=== PATIENT | female | born 1960 | race Caucasian/White ===

== ENCOUNTER 2017-07-03 12:22 | Emergency (ER) | payer SELFPAY ==
[2017-07-03 12:39] VITALS: BMI 29.9
[2017-07-03 12:43] VITALS: BP 142/78
--- NOTE | 2017-07-03 13:03 | DR.WEAKNES ---
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 This morning I felt weird; face felt weird, sting on left side and left arm pain. Patient reports that yesterday got hot at work. Denies any history of cardiopulmonary disease. Chief Complaint:: PT SENT OVER PER [facility] WITH C/O FACIAL DROOPING AND LEFT ARM NOT FEELING RIGHT.. AND PT WORKS IN THE KITCHEN AND THERE HAS NOT BEEN ANY AIR ..BR Self Treatment fo Chief Complaint: PT C/O STEINER AND STUDDERING YESTERDAY .. - Source History Provided: Patient - Mode of Arrival Mode of Arrival: Ambulatory - Timing Onset of Chief Complaint: 07/03/17 Symptom Onset: Known Onset of Symptoms Start Date: 07/03/17 Onset of Symptoms Start Time: 08:00 - Duration Duration: Unknown Duration: Hours - Context Onset: With heavy exertion Symptoms: Weakness. denies: Slurred Speech, Diplopia History of: None. denies: CVA, TIA, Atrial Fibrillation Stroke Symptoms: None - Location Weakness Location: Normal, Left - Associated Signs and Symptoms Associated Signs and Symptoms: None. denies: Altered Mental Status, Chest Pain , Nausea PMH - PMH Past Medical History: Yes Past Medical History: Anxiety, COPD, Depression, Hypertension Past Surgical History: Yes Surgical History: Cholecystectomy Past Surgical History Comment: TUBAL - Family History History of Family Medical Conditions: Yes Family Medical History: Diabetes Mellitus, Cancer, [place], Hypertension - Social History Does patient currently use any type of tobacco product: No Have you used tobacco products in the last 12 months: No Type of Tobacco Use: None Does any household member use tobacco: No Alcohol Use: None Do you use any recreational Drugs:: No Lives With: Alone Lives Where: Home - infectious screening In the last 2 months have you had wt loss of >10#?: NO Have you had fever, night sweats or hemotysis?: No Have you traveled outside the country in the last 6 months?: No Isolation: Standard ROS - Review of Systems Constitutional: No Symptoms Reported Eyes: No Symptoms Reported ENTM: No Symptoms Reported Respiratoy: No Symptoms Reported Cardiovascular: No Symptoms Reported Gastrointestinal/Abdominal: No Symptoms Reported Genitourinary: No Symptoms Reported Neurological: No Symptoms Reported Musculoskeletal: No Symptoms Reported Integumentary: No Symptoms Reported Hematologic/Lymphatic: No Symptoms Reported Endocrine: No Symptoms Reported Psychiatric: No Symptoms Reported All Other Systems: Reviewed and Negative PE - Vital Signs Vitals: Temperature 98.0 F Pulse Rate 67 Respiratory Rate 20 Blood Pressure [Right Arm] 98/55 Blood Pressure [Left Arm] 133/83 Blood Pressure 142/78 O2 Sat by Pulse Oximetry 99 - General Limitations: No Limitations General Appearance: Alert, In No Apparent Distress - Head Head Exam: Normal Inspection, Atraumatic Head Exam Physical: Laceration - Eyes Eye exam: Normal Appearance, PERRL, EOMI Eyelids: Normal Inspection: Bilateral Pupils: Regular, Round: Bilateral Sclera/Conjunctival: Normal Inspection: Bilateral Anterior Chamber: Normal Inspection: Bilateral - ENT ENT Exam: Normal Exam, Normal Oropharynx Mouth Exam: Normal Inspection Throat Exam: Normal Inspection - Neck Neck Exam: Normal Inspection, Full ROM - Chest Chest Inspection: Normal Inspection - Respiratory Respiratory Exam: Normal Lung Sounds Bilat Respiratory Exam: Bilateral Clear to Auscultation - Cardiovascular Cardiovascular Exam: Regular Rate, Normal Rhythm - Abdominal Exam Abdominal Exam: Normal Inspection, Normal Bowel Sounds Abdominal Tenderness: negative: RUQ, RLQ, LUQ, LLQ, Epigastrium, Suprapubic, Diffuse, Mild, Moderate, Severe, Other - Extremities Extremities Exam: Normal Inspection, Full ROM - Back Back Exam: Normal Inspection, Full ROM - Neurologic Neurological Exam: Alert, Oriented X3, CN II-XII Intact Speech: Fluid Speech Cranial Nerve Exam: EOM Function (II, III, IV, ): Normal, Facial Sensation (V) : Normal, Facial Palsy (VII): Normal, Gag reflex (XI): Normal Cerebellar Function: Normal Gait Motor Strength - RUE: 3/5 Motor Strength - LLE: 3/5 Sensory Exam Upper Extremity: Light Touch: Normal, Pin Prick: Normal Sensory Exam Lower Extremity: Light Touch: Normal DTR: achilles tendon (L): 2+ - Psychiatric Psychiatric Exam: Normal Affect, Normal Mood - Skin Skin Exam: Warm, Dry, Intact Course - Treatment Treatment: Potassium - Reevaluation 1st: Improved ROR - Labs Reviewed Laboratory Results Reviewed?: Yes (CK 299) Result Diagrams: 07/03/17 12:50 07/03/17 12:50 Laboratory: WBC 5.1 X10^3/uL (3.6-10.0) 07/03/17 12:50 RBC 4.53 X10^6/uL (3.5-5.4) 07/03/17 12:50 Hgb 13.3 g/dL (12.0-16.0) 07/03/17 12:50 Hct 39.2 % (36.0-47.0) 07/03/17 12:50 MCV 86.5 fL (80.0-100.0) 07/03/17 12:50 MCH 29.5 pg (27.0-34.0) 07/03/17 12:50 MCHC 34.1 g/dL (33.0-35.0) 07/03/17 12:50 RDW 13.7 % (11.6-16.5) 07/03/17 12:50 Plt Count 251 X10^3/uL (150.0-450.0) 07/03/17 12:50 MPV 8.8 fL (7.4-11.0) 07/03/17 12:50 Neut % 52.3 % (42.0-75.0) 07/03/17 12:50 Lymph % 34.6 % (21.0-51.0) 07/03/17 12:50 [place] % 9.6 % (0.0-13.0) 07/03/17 12:50 Eos % 2.4 % (0.9-2.9) 07/03/17 12:50 Baso % 1.1 % (0.2-1.0) H 07/03/17 12:50 Neut # 2.7 x10^3/uL (2.2-4.8) 07/03/17 12:50 Lymph # 1.8 X10^3/uL (1.3-2.9) 07/03/17 12:50 [place] # 0.5 x10^3/uL (0.3-0.8) 07/03/17 12:50 Eos # 0.1 x10^3/uL (0.0-0.2) 07/03/17 12:50 Baso # 0.1 X10^3/uL (0.0-0.1) 07/03/17 12:50 Absolute Nucleated RBC 0.1 /100WBC 07/03/17 12:50 INR Target Range - 07/03/17 12:50 INR 1.00 (0.8-1.3) 07/03/17 12:50 Sodium 139 mmol/L (136-145) 07/03/17 12:50 Corrected Sodium TNP 07/03/17 12:50 Potassium 2.9 mmol/L (3.5-5.1) L* 07/03/17 12:50 Chloride 104 mmol/L (98-107) 07/03/17 12:50 Carbon Dioxide 28.9 mmol/L (21-32) 07/03/17 12:50 BUN 12 mg/dL (7-18) 07/03/17 12:50 Creatinine 1.02 mg/dL (0.55-1.02) 07/03/17 12:50 Est GFR (MDRD) Af Amer > 60 (>60) 07/03/17 12:50 Est GFR (MDRD) Non-Af 59 (>60) 07/03/17 12:50 Glucose 90 mg/dL (65-99) 07/03/17 12:50 Calcium 8.9 mg/dL (8.5-10.1) 07/03/17 12:50 Corrected Calcium TNP 07/03/17 12:50 Phosphorus 3.1 mg/dL (2.6-4.7) 07/03/17 12:50 Magnesium 1.9 mg/dL (1.7-2.9) 07/03/17 12:50 Total Bilirubin 0.50 mg/dL (0.2-1.0) 07/03/17 12:50 AST 27 Units/L (15-37) 07/03/17 12:50 ALT 26 Units/L (12-78) 07/03/17 12:50 Alkaline Phosphatase 50 Units/L (46-116) 07/03/17 12:50 Creatine Kinase 299 Units/L (26-192) H 07/03/17 12:50 CK-MB (CK-2) 2.6 ng/mL (0-4.0) 07/03/17 12:50 CK/CKMB % Calc 0.9 % (<4) 07/03/17 12:50 Troponin I < 0.02 ng/mL (0-1.5) 07/03/17 12:50 Total Protein 8.1 g/dL (6.4-8.2) 07/03/17 12:50 Albumin 3.7 g/dL (3.4-5.0) 07/03/17 12:50 Globulin 4.4 g/dL (2.5-4.5) 07/03/17 12:50 Albumin/Globulin Ratio 0.8 Ratio (1.1-2.1) L 07/03/17 12:50 - XRAY XRAY Interpreted by: Radiologist (CT Brain: No acute abnormality/ Chest: No evidence of acute disease) - Diagnosis Discharge Problem: Hypokalemia Heat exhaustion Qualifiers: Encounter type: initial encounter Qualified Code(s): T67.5XXA - Heat exhaustion , unspecified, initial encounter - Discharge Plan Condition: Stable - Follow ups/Referrals Follow ups/Referrals: TORRES JOHNS [Primary Care Provider] - 3 days - Instructions
[2017-07-03 13:19] LABS: ALANINE AMINOTRANSFERASE 26 Units/L (12-78); ALBUMIN 3.7 g/dL (3.4-5.0); ALKALINE PHOSPHATASE 50 Units/L (46-116); ASPARTATE AMINO TRANSFERASE 27 Units/L (15-37); BASOPHILS # (AUTO) 0.1 X10^3/uL (0.0-0.1); BASOPHILS % (AUTO) 1.1 % (0.2-1.0); BLOOD UREA NITROGEN 12 mg/dL (7-18); CALCIUM 8.9 mg/dL (8.5-10.1); CARBON DIOXIDE 28.9 mmol/L (21-32); CHLORIDE 104 mmol/L (98-107); CKMB % 0.9 % (<4); CREATINE KINASE 299 Units/L (26-192); CREATINE KINASE MB 2.6 ng/mL (0-4.0); CREATININE 1.02 mg/dL (0.55-1.02); EOSINOPHILS # (AUTO) 0.1 x10^3/uL (0.0-0.2); EOSINOPHILS % (AUTO) 2.4 % (0.9-2.9); GLUCOSE 90 mg/dL (65-99); HEMATOCRIT 39.2 % (36.0-47.0); HEMOGLOBIN 13.3 g/dL (12.0-16.0); LYMPHOCYTES # (AUTO) 1.8 X10^3/uL (1.3-2.9); LYMPHOCYTES % (AUTO) 34.6 % (21.0-51.0); MAGNESIUM 1.9 mg/dL (1.7-2.9); MEAN CORPUSCULAR HEMOGLOBIN 29.5 pg (27.0-34.0); MEAN CORPUSCULAR HGB CONC 34.1 g/dL (33.0-35.0); MEAN CORPUSCULAR VOLUME 86.5 fL (80.0-100.0); MEAN PLATELET VOLUME 8.8 fL (7.4-11.0); MONOCYTES # (AUTO) 0.5 x10^3/uL (0.3-0.8); MONOCYTES % (AUTO) 9.6 % (0.0-13.0); NEUTROPHILS # (AUTO) 2.7 x10^3/uL (2.2-4.8); NEUTROPHILS % (AUTO) 52.3 % (42.0-75.0); PHOSPHORUS 3.1 mg/dL (2.6-4.7); PLATELET COUNT 251 X10^3/uL (150.0-450.0); RED BLOOD COUNT 4.53 X10^6/uL (3.5-5.4); RED CELL DISTRIBUTION WIDTH 13.7 % (11.6-16.5); SODIUM 139 mmol/L (136-145); TOTAL PROTEIN 8.1 g/dL (6.4-8.2); TROPONIN I < 0.02 ng/mL (0-1.5); WHITE BLOOD COUNT 5.1 X10^3/uL (3.6-10.0); eGFR BLACK RACES > 60 (>60); eGFR NON BLACK RACES 59 (>60)
[2017-07-03] MEDS ORDERED: K-LYTE EFFERVESCENT ONE (13:22)
[2017-07-03] MEDS ORDERED: MICRO K EXTEN CAP 10 MEQ PO ONE (13:33)
--- NOTE | 2017-07-03 13:33 | CT ---
HISTORY: Headache, weakness, left facial droop Study: CT brain without contrast Comparison: February 24, 2013 Technique: Multiple axial images of the brain were obtained from the skull base to the vertex witho ut administration of IV contrast. AEC was utilized. Findings: No acute intraparenchymal hemorrhage or mass can be identified. No extra-axial fluid collections ar e seen. No alteration in the attenuation of the brain parenchyma can be identified to suggest acute or subacute ischemic change. The ventricular system is symmetric and nondilated. The extracranial structures are grossly unremarkable. IMPRESSION: No acute intracranial process can be identified. Reported By:
--- NOTE | 2017-07-03 13:50 | RAD ---
History: Weakness, left-sided facial drooping Study: Chest single view Findings: AP portable examination of the chest is obtained at approximately 1:00 p.m. And comparison made to the study of October 23, 2016. Heart and mediastinal structures maintain a satisfactory luisa earance. Lungs and pleural spaces are clear. Osseous structures appear intact. Impression: No change in the appearance of the chest and no evidence of acute disease. Reported By:
[2017-07-03] MEDS ORDERED: MICRO K EXTEN CAP 10 MEQ PO SCH (14:00)
[2017-07-04] MEDS ORDERED: K-LYTE EFFERVESCENT PO ONE (13:35)
== END 2017-07-03 14:29 | disposition home or self-care (01) ==
LOC: ER 12:28
DX: E87.6 Hypokalemia (principal); T67.5XXA Heat exhaustion, unspecified, initial encounter; R51 Headache
CPT/HCPCS: 36415; 70450; 71010; 80053; 82550; 82553; 83735; 84100; 84484; 85025; 85610; 93005; 93010; 99283

== ENCOUNTER → 2017-09-30 | Outpatient (CLI) | payer OTHER ==
--- NOTE | 2017-09-30 16:38 | RAD ---
Examination: Lumbar spine, AP and lateral views History: Fell 3 months ago Findings: There is a localized levoscoliosis with rotatory component, centered at L2. No acute fractu re or subluxation is noted. Marginal osteophytes are present at several levels. There is disc narrowi ng at the L5-S1 interspace. Pedicles and sacroiliac joints intact. Impression: 1. Lumbar scoliosis. 2. Degenerative lumbar spondylosis with localized findings of degenerative disc disease at the L5-S1 level. Reported By:
== END ==
LOC: RAD 10:20
PROVIDERS: ATTEND Internal Medicine
DX: Z02.71 Encounter for disability determination (principal); M51.37 Other intervertebral disc degeneration, lumbosacral region; M47.896 Other spondylosis, lumbar region
CPT/HCPCS: 72100

== ENCOUNTER 2017-10-23 12:36 | Emergency (ER) | payer SELFPAY ==
[2017-10-23 12:42] VITALS: BMI 29.1
--- NOTE | 2017-10-23 12:44 | DR.GENAD ---
HPI - HPI Comment HPI Comment: PATIENT SAID PAIN IS NON RADIATING. NO MEDS TAKEN. DENIES URI SYMTOMS. PATIENT DENIES NAUSEA OR VOMITING. NO PREVIOUS EPISODE. - Complaint/Symptoms Chief Complaint Doctors Comments: MID SUBSTERNAL CHEST PAIN TIMES 30MIN. - Nurses notes reviewed Nurses Notes Review: Yes - Source History Provided: Patient - Mode of Arrival Mode of Arrival: Ambulatory - Timing Came on: Suddenly - Duration Duration: Constant Duration: Minutes - Severity Severity: Moderate PMH - PMH Past Medical History: Anxiety, COPD, Depression, Hypertension Past Surgical History: Yes Surgical History: Cholecystectomy - Family History Family Medical History: Diabetes Mellitus, Cancer, [place], Hypertension - Social History Do you use any recreational Drugs:: No ROS - Review of Systems Constitutional: No Symptoms Reported Eyes: No Symptoms Reported ENTM: No Symptoms Reported. negative: Ear Pain, Nose Discharge, Nose Congestion , Throat Pain Respiratoy: Non-Productive Cough. negative: Short of Breath, Wheezing, Hemoptysis Cardiovascular: No Symptoms Reported Gastrointestinal/Abdominal: No Symptoms Reported Genitourinary: No Symptoms Reported Neurological: No Symptoms Reported Musculoskeletal: No Symptoms Reported Integumentary: No Symptoms Reported Hematologic/Lymphatic: No Symptoms Reported Endocrine: No Symptoms Reported All Other Systems: Reviewed and Negative PE - Vital Signs Vitals: Temperature 97 F Pulse Rate [Right Brachial] 66 Pulse Rate 73 Respiratory Rate 18 Blood Pressure [Right Arm] 108/61 Blood Pressure [Left Arm] 133/83 Blood Pressure 125/63 O2 Sat by Pulse Oximetry 100 - General Limitations: No Limitations General Appearance: Alert - Head Head Exam: Normal Inspection - Eyes Eye exam: Normal Appearance, Scleral Icterus - ENT ENT Exam: Normal External Ear Exam External Ear Exam: Normal External Inspection TM/Canal Exam: Bilateral Normal Nose Exam: Normal Nose Exam Mouth Exam: Normal Inspection Throat Exam: Normal Inspection - Neck Neck Exam: Normal Inspection - Chest Chest Inspection: Symmetric Chest Wall Rise - Respiratory Respiratory Exam: Normal Lung Sounds Bilat Respiratory Exam: Bilateral Clear to Auscultation - Cardiovascular Cardiovascular Exam: Regular Rate - Abdominal Exam Abdominal Exam: Normal Bowel Sounds, Soft. negative: Tenderness - Extremities Extremities Exam: negative: Edema - Back Back Exam: Normal Inspection - Neurologic Neurological Exam: Alert, Oriented X3 - Psychiatric Psychiatric Exam: Normal Affect, Normal Mood - Skin Skin Exam: Normal Color MDM - Additional Information Additional Information Obtained From: Family - Differential Diagnosis Differential Diagnosis: CHEST PAIN, PNEUMONIA, [place], Course - Treatment Treatment: SEE ORDERS. - Education/Counseling Education/Counseling: Patient, Education Educated On: Treatment, Needs for Follow Up ROR - Labs Reviewed Laboratory Results Reviewed?: Yes Result Diagrams: 10/23/17 13:00 10/23/17 15:39 Laboratory: WBC 5.3 X10^3/uL (3.6-10.0) 10/23/17 13:00 RBC 4.23 X10^6/uL (3.5-5.4) 10/23/17 13:00 Hgb 12.4 g/dL (12.0-16.0) 10/23/17 13:00 Hct 36.7 % (36.0-47.0) 10/23/17 13:00 MCV 86.7 fL (80.0-100.0) 10/23/17 13:00 MCH 29.2 pg (27.0-34.0) 10/23/17 13:00 MCHC 33.7 g/dL (33.0-35.0) 10/23/17 13:00 RDW 13.5 % (11.6-16.5) 10/23/17 13:00 Plt Count 247 X10^3/uL (150.0-450.0) 10/23/17 13:00 MPV 8.4 fL (7.4-11.0) 10/23/17 13:00 Neut % 54.5 % (42.0-75.0) 10/23/17 13:00 Lymph % 33.3 % (21.0-51.0) 10/23/17 13:00 [place] % 8.6 % (0.0-13.0) 10/23/17 13:00 Eos % 2.7 % (0.9-2.9) 10/23/17 13:00 Baso % 0.9 % (0.2-1.0) 10/23/17 13:00 Neut # 2.9 x10^3/uL (2.2-4.8) 10/23/17 13:00 Lymph # 1.8 X10^3/uL (1.3-2.9) 10/23/17 13:00 [place] # 0.5 x10^3/uL (0.3-0.8) 10/23/17 13:00 Eos # 0.1 x10^3/uL (0.0-0.2) 10/23/17 13:00 Baso # 0.0 X10^3/uL (0.0-0.1) 10/23/17 13:00 Absolute Nucleated RBC 0.0 /100WBC 10/23/17 13:00 Sodium 139 mmol/L (136-145) 10/23/17 13:00 Corrected Sodium TNP 10/23/17 13:00 Potassium 3.3 mmol/L (3.5-5.1) L 10/23/17 15:39 Chloride 103 mmol/L (98-107) 10/23/17 13:00 Carbon Dioxide 25.3 mmol/L (21-32) 10/23/17 13:00 BUN 14 mg/dL (7-18) 10/23/17 13:00 Creatinine 0.97 mg/dL (0.55-1.02) 10/23/17 13:00 Est GFR (MDRD) Af Amer > 60 (>60) 10/23/17 13:00 Est GFR (MDRD) Non-Af > 60 (>60) 10/23/17 13:00 Glucose 84 mg/dL (65-99) 10/23/17 13:00 Calcium 9.3 mg/dL (8.5-10.1) 10/23/17 13:00 Corrected Calcium TNP 10/23/17 13:00 Total Bilirubin 0.40 mg/dL (0.2-1.0) 10/23/17 13:00 AST 21 Units/L (15-37) 10/23/17 13:00 ALT 23 Units/L (12-78) 10/23/17 13:00 Alkaline Phosphatase 48 Units/L (46-116) 10/23/17 13:00 Creatine Kinase 112 Units/L (26-192) 10/23/17 15:39 CK-MB (CK-2) 1.4 ng/mL (0-4.0) 10/23/17 15:39 CK/CKMB % Calc 1.3 % (<4) 10/23/17 15:39 Troponin I < 0.02 ng/mL (0-1.5) 10/23/17 15:39 Total Protein 7.9 g/dL (6.4-8.2) 10/23/17 13:00 Albumin 3.6 g/dL (3.4-5.0) 10/23/17 13:00 Globulin 4.3 g/dL (2.5-4.5) 10/23/17 13:00 Albumin/Globulin Ratio 0.8 Ratio (1.1-2.1) L 10/23/17 13:00 H. pylori IgG Antibody Negative (NEGATIVE) 10/23/17 13:00 - XRAY XRAY Interpreted by: Radiologist XRAY Findings: REPORT DISCUSS WITH PATIENT. - EKG Rhythm: NSR (EKG NOTED.) - Diagnosis Discharge Problem: Hypokalemia Chest pain Qualifiers: Chest pain type: precordial pain Qualified Code(s): R07.2 - Precordial pain - Discharge Plan Condition: Stable Prescriptions: Aspirin EC [ASPIRIN EC 81 MG *] 81 mg PO DAILY #30 tab Ranitidine HCl [ZANTAC TAB 150 MG *] 150 mg PO BID #60 tab - Follow ups/Referrals Follow ups/Referrals: TORRES JOHNS [Primary Care Provider] - 3 days - Instructions Instructions: Hypokalemia, Chest Pain Observation Additional Instructions: RETURN TO ED IF WORSE.
[2017-10-23 13:09] VITALS: BP 108/61
[2017-10-23 13:09] LABS: BASOPHILS % (AUTO) 0.9 % (0.2-1.0); EOSINOPHILS # (AUTO) 0.1 x10^3/uL (0.0-0.2); EOSINOPHILS % (AUTO) 2.7 % (0.9-2.9); HEMATOCRIT 36.7 % (36.0-47.0); HEMOGLOBIN 12.4 g/dL (12.0-16.0); LYMPHOCYTES # (AUTO) 1.8 X10^3/uL (1.3-2.9); LYMPHOCYTES % (AUTO) 33.3 % (21.0-51.0); MEAN CORPUSCULAR HEMOGLOBIN 29.2 pg (27.0-34.0); MEAN CORPUSCULAR HGB CONC 33.7 g/dL (33.0-35.0); MEAN CORPUSCULAR VOLUME 86.7 fL (80.0-100.0); MEAN PLATELET VOLUME 8.4 fL (7.4-11.0); MONOCYTES # (AUTO) 0.5 x10^3/uL (0.3-0.8); MONOCYTES % (AUTO) 8.6 % (0.0-13.0); NEUTROPHILS # (AUTO) 2.9 x10^3/uL (2.2-4.8); NEUTROPHILS % (AUTO) 54.5 % (42.0-75.0); PLATELET COUNT 247 X10^3/uL (150.0-450.0); RED BLOOD COUNT 4.23 X10^6/uL (3.5-5.4); RED CELL DISTRIBUTION WIDTH 13.5 % (11.6-16.5); WHITE BLOOD COUNT 5.3 X10^3/uL (3.6-10.0)
[2017-10-23 13:28] LABS: ALANINE AMINOTRANSFERASE 23 Units/L (12-78); ALBUMIN 3.6 g/dL (3.4-5.0); ALKALINE PHOSPHATASE 48 Units/L (46-116); ASPARTATE AMINO TRANSFERASE 21 Units/L (15-37); BLOOD UREA NITROGEN 14 mg/dL (7-18); CALCIUM 9.3 mg/dL (8.5-10.1); CARBON DIOXIDE 25.3 mmol/L (21-32); CHLORIDE 103 mmol/L (98-107); CKMB % 1.2 % (<4); CREATINE KINASE 119 Units/L (26-192); CREATINE KINASE MB 1.4 ng/mL (0-4.0); CREATININE 0.97 mg/dL (0.55-1.02); SODIUM 139 mmol/L (136-145); TOTAL PROTEIN 7.9 g/dL (6.4-8.2); TROPONIN I < 0.02 ng/mL (0-1.5); eGFR BLACK RACES > 60 (>60); eGFR NON BLACK RACES > 60 (>60)
--- NOTE | 2017-10-23 13:42 | RAD ---
Examination: Portable AP chest History: Mid sternal chest pain Comparison reference 07/03/2017 Findings: Normal heart size with no evidence for localized pulmonary or pleural abnormality. Lung vol umes are symmetrically diminished. No pneumothorax is seen. Impression: Low lung volumes related to portable expiratory technique. No acute abnormality identifie d. Reported By:
[2017-10-23] MEDS ORDERED: POTASSIUM CHLORIDE LIQ 20 MEQ UDC PO ONE (13:47)
[2017-10-23] MEDS ORDERED: POTASSIUM CHLORIDE LIQ 20 MEQ UDC ONE (13:51)
[2017-10-23 16:26] LABS: CKMB % 1.3 % (<4); CREATINE KINASE 112 Units/L (26-192); CREATINE KINASE MB 1.4 ng/mL (0-4.0); TROPONIN I < 0.02 ng/mL (0-1.5)
[2017-10-23] MEDS ORDERED: K-LYTE EFFERVESCENT PO ONE (16:28)
[2017-10-23] MEDS ORDERED: K-LYTE EFFERVESCENT ONE (16:31)
== END 2017-10-23 16:42 ==
LOC: ER 12:53
DX: E87.6 Hypokalemia (principal); R07.2 Precordial pain
CPT/HCPCS: 36415; 71010; 80053; 82550; 82553; 84132; 84484; 85025; 86677; 93005; 93010; 96365; 99283; A4222

== ENCOUNTER → 2017-12-09 | Outpatient (CLI) | payer OTHER ==
--- NOTE | 2017-12-11 10:58 | MG ---
HISTORY: SCREENING Comparison: October 17, 2014 and August 06, 2016 FINDINGS: Bilateral CC and MLO projections of the right and left breast were obtained. Scattered fibroglandula r tissue is seen to be present without significant interval change. No suspicious architectural dist ortion, mass or clustered microcalcifications can be observed to suggest malignancy. No skin thicken ing or nipple retraction is appreciated. No pathological lymphadenopathy can be identified. Benign- appearing calcifications are noted within the right and left breast. IMPRESSION: NO RADIOGRAPHIC EVIDENCE OF MALIGNANCY. ACR CATEGORY 2 - benign findings. FOLLOW-UP EXAM 1 YEAR. Diagnostic CAD was utilized and reviewed. * 0 (ZERO) - ASSESSMENT INCOMPLETE; ADDITIONAL IMAGING IS NEEDED. * 1/1 (ONE) - NEGATIVE. * 2/II (TWO) - BENIGN FINDINGS. * 3/III (THREE) - PROBABLY BENIGN FINDING; SHORT INTERVAL FOLLOW-UP SUGGESTED. * 4/IV (FOUR) - SUSPICIOUS ABNORMALITY; BIOPSY SHOULD BE CONSIDERED. * 5/V - HIGHLY SUSPICIOUS OF MALIGNANCY; BIOPSY SHOULD BE PERFORMED. A NEGATIVE X-RAY REPORT SHOULD NOT DELAY BIOPSY IF A DOMINANT OR CLINICALLY SUSPICIOUS MASS IS PRESENT; 4 TO 8 PERCENT OF CANCERS ARE NOT IDENTIFIED BY X-RAY. A NEGA TIVE REPORT MAY REINFORCE THE CLINICAL IMPRESSION. ADENOSIS AND DENSE BREASTS MAY OBSCURE AN UNDERLY ING NEOPLASM. Reported By:
== END ==
LOC: RAD 14:49
PROVIDERS: ATTEND Internal Medicine
DX: Z12.31 Encounter for screening mammogram for malignant neoplasm of breast (principal)
CPT/HCPCS: 77067

== ENCOUNTER 2018-02-08 09:59 | Emergency (ER) | payer SELFPAY ==
[2018-02-08 10:03] VITALS: BMI 28.7
--- NOTE | 2018-02-08 10:30 | DR.SOBA ---
HPI - Time Seen Time seen: 10:15 - Primary Care Physician Primary Care Physician: GELA HINSONP - HPI Comment HPI Comment: PATIENT HAVE MILD HEADACHE. BEING STILL IMPROVE DIZZINESS. - Complaints Chief Complaint Doctors Comments: DIZZINESS WITH ATAXIA AND NAUSEA ASSOCIATED WITH SOB AND COUGH. Chief Complaint:: PT. C/O SHORTNESS OF BREATH, DIZZINESS, FATIGUE, AND SLIGHT HEADACHE. PT. WAS AT WORK THIS MORNING AND BECAME "SHORT WINDED AND DIZZY." - Reviewed Nurses Notes Reviewed: Yes - Source History Provided: Patient - Mode of Arrival Mode of Arrival: Ambulatory - Timing Onset of Chief Complaint: 02/08/18 - Duration Duration: Minutes - Context PE Risk Factors:: None History of:: None Currently on:: Neither Prehospital Care:: None - Associated Signs and Symptoms Associated Signs and Symptoms: Cough, Chest Pain - If Chest Pain Quality: Sharp Location: Substernal - If Cough Cough: None PMH - PMH Past Medical History: Yes Past Medical History: Anxiety, COPD, Depression, Hypertension Past Surgical History: Yes Surgical History: Cholecystectomy - Family History History of Family Medical Conditions: Yes Family Medical History: Diabetes Mellitus, Cancer, [place], Hypertension - Social History Does patient currently use any type of tobacco product: No Have you used tobacco products in the last 12 months: No Type of Tobacco Use: None Does any household member use tobacco: No Alcohol Use: None Do you use any recreational Drugs:: No Lives With: Alone Lives Where: Home - infectious screening In the last 2 months have you had wt loss of >10#?: NO Have you had fever, night sweats or hemotysis?: No Have you traveled outside the country in the last 6 months?: No Isolation: Standard ROS - Review of Systems Constitutional: Weakness, Fatigue. negative: Chills, Fever Eyes: negative: Eye Pain, Discharge ENTM: negative: Ear Pain, Nose Discharge, Nose Congestion, Throat Pain Respiratoy: Non-Productive Cough, Short of Breath. negative: Wheezing, Hemoptysis Cardiovascular: Chest Pain. negative: Edema, Palpitations Gastrointestinal/Abdominal: Nausea. negative: Abdominal Pain, Constipation, Diarrhea, Vomiting Genitourinary: No Symptoms Reported. negative: Dysuria, Frequency, Hematuria Neurological: Headache, Weakness, Dizziness, Other (ATAXIA) Musculoskeletal: No Symptoms Reported Integumentary: No Symptoms Reported Hematologic/Lymphatic: No Symptoms Reported Endocrine: No Symptoms Reported All Other Systems: Reviewed and Negative PE - Vital Signs Vitals: Temperature 97.2 F Pulse Rate [Left Brachial] 67 Pulse Rate [Standing] 87 Pulse Rate [Sitting] 86 Pulse Rate [Lying] 77 Pulse Rate 79 Respiratory Rate 18 Blood Pressure [Right Arm] 108/61 Blood Pressure [Left Arm] 138/54 Blood Pressure [Standing] 128/74 Blood Pressure [Sitting] 122/71 Blood Pressure [Lying] 137/68 Blood Pressure 108/62 O2 Sat by Pulse Oximetry 95 - General Limitations: No Limitations General Appearance: Alert - Head Head Exam: Normal Inspection - Eyes Eye exam: Normal Appearance - ENT ENT Exam: Normal External Ear Exam - Neck Neck Exam: Trachea Midline - Chest Chest Inspection: Symmetric Chest Wall Rise - Respiratory Respiratory Exam: Normal Lung Sounds Bilat Respiratory Exam: Bilateral Clear to Auscultation - Cardiovascular Cardiovascular Exam: Regular Rate, Normal Rhythm, Normal Heart Sounds - Abdominal Exam Abdominal Exam: Normal Bowel Sounds, Soft. negative: Tenderness - Extremities Extremities Exam: Normal Inspection - Back Back Exam: Normal Inspection - Neurologic Neurological Exam: Alert, Oriented X3, CN II-XII Intact, Normal Gait (ATAXIC), Reflexes Normal. negative: Motor Sensory Deficit - Psychiatric Psychiatric Exam: Anxious - Skin Skin Exam: Normal Color MDM - Additional Information Obtained Additional Information Obtained From: Family - Differential Diagnosis Differential Diagnosis Comment:: VERTIGO Course - Treatment Treatment: SEE ORDERS. PO POTASSIUM IN ED. - Education/Counseling Education/Counseling: Patient, Education Educated On: Diagnosis, Needs for Follow Up ROR - Labs Reviewed Laboratory Results Reviewed?: Yes Result Diagrams: 02/08/18 10:50 02/08/18 10:50 Laboratory: WBC 4.3 X10^3/uL (3.6-10.0) 02/08/18 10:50 RBC 4.29 X10^6/uL (3.5-5.4) 02/08/18 10:50 Hgb 12.5 g/dL (12.0-16.0) 02/08/18 10:50 Hct 36.6 % (36.0-47.0) 02/08/18 10:50 MCV 85.3 fL (80.0-100.0) 02/08/18 10:50 MCH 29.1 pg (27.0-34.0) 02/08/18 10:50 MCHC 34.1 g/dL (33.0-35.0) 02/08/18 10:50 RDW 13.8 % (11.6-16.5) 02/08/18 10:50 Plt Count 235 X10^3/uL (150.0-450.0) 02/08/18 10:50 MPV 8.3 fL (7.4-11.0) 02/08/18 10:50 Neut % (Auto) 55.2 % (42.0-75.0) 02/08/18 10:50 Lymph % (Auto) 31.6 % (21.0-51.0) 02/08/18 10:50 Major % (Auto) 9.5 % (0.0-13.0) 02/08/18 10:50 Eos % (Auto) 2.5 % (0.9-2.9) 02/08/18 10:50 Baso % (Auto) 1.2 % (0.2-1.0) H 02/08/18 10:50 Neut # (Auto) 2.4 x10^3/uL (2.2-4.8) 02/08/18 10:50 Lymph # (Auto) 1.3 X10^3/uL (1.3-2.9) 02/08/18 10:50 [place] # (Auto) 0.4 x10^3/uL (0.3-0.8) 02/08/18 10:50 Eos # (Auto) 0.1 x10^3/uL (0.0-0.2) 02/08/18 10:50 Baso # (Auto) 0.1 X10^3/uL (0.0-0.1) 02/08/18 10:50 Absolute Nucleated RBC 0.1 /100WBC 02/08/18 10:50 Sodium 139 mmol/L (136-145) 02/08/18 10:50 Corrected Sodium TNP 02/08/18 10:50 Potassium 3.0 mmol/L (3.5-5.1) L* 02/08/18 10:50 Chloride 103 mmol/L (98-107) 02/08/18 10:50 Carbon Dioxide 27.3 mmol/L (21-32) 02/08/18 10:50 BUN 14 mg/dL (7-18) 02/08/18 10:50 Creatinine 1.06 mg/dL (0.55-1.02) H 02/08/18 10:50 Est GFR (MDRD) Af Amer > 60 (>60) 02/08/18 10:50 Est GFR (MDRD) Non-Af 56 (>60) L 02/08/18 10:50 Glucose 96 mg/dL (65-99) 02/08/18 10:50 Calcium 8.5 mg/dL (8.5-10.1) 02/08/18 10:50 Corrected Calcium TNP 02/08/18 10:50 Total Bilirubin 0.30 mg/dL (0.2-1.0) 02/08/18 10:50 AST 19 Units/L (15-37) 02/08/18 10:50 ALT 23 Units/L (12-78) 02/08/18 10:50 Alkaline Phosphatase 62 Units/L (46-116) 02/08/18 10:50 Creatine Kinase 97 Units/L (26-192) 02/08/18 10:50 CK-MB (CK-2) 1.6 ng/mL (0-4.0) 02/08/18 10:50 CK/CKMB % Calc 1.7 % (<4) 02/08/18 10:50 Troponin I < 0.02 ng/mL (0-1.5) 02/08/18 10:50 Total Protein 8.4 g/dL (6.4-8.2) H 02/08/18 10:50 Albumin 3.6 g/dL (3.4-5.0) 02/08/18 10:50 Globulin 4.8 g/dL (2.5-4.5) H 02/08/18 10:50 Albumin/Globulin Ratio 0.8 Ratio (1.1-2.1) L 02/08/18 10:50 Specimen Type Clean catch urine 02/08/18 11:01 Urine Color Yellow (YELLOW) 02/08/18 11:01 Urine Appearance Clear (CLEAR) 02/08/18 11:01 Urine pH 6.0 (5.0 - 8.0) 02/08/18 11:01 Ur Specific [place] 1.015 (1.000-1.030) 02/08/18 11:01 Urine Protein Negative (NEGATIVE) 02/08/18 11:01 Urine Glucose (UA) Negative (NEGATIVE) 02/08/18 11:01 Urine Ketones Negative (NEGATIVE) 02/08/18 11:01 Urine Occult Blood 1+ (NEGATIVE) 02/08/18 11:01 Urine Nitrite Negative (NEGATIVE) 02/08/18 11:01 Urine Bilirubin Negative (NEGATIVE) 02/08/18 11:01 Urine Urobilinogen Normal (NORMAL) 02/08/18 11:01 Ur Leukocyte Esterase 1+ (NEGATIVE) 02/08/18 11:01 Urine RBC 0-2 /HPF (NONE SEEN) 02/08/18 11:01 Urine WBC 0-2 /HPF (NONE SEEN) 02/08/18 11:01 Ur Squamous Epith Cells Moderate /HPF (NEGATIVE) 02/08/18 11:01 Urine Bacteria Negative /HPF (NEGATIVE) 02/08/18 11:01 Ur Culture Indicated? No/not indicated 02/08/18 11:01 - XRAY XRAY Interpreted by: Radiologist XRAY Findings: REPORT DISCUSS WITH PATIENT. - EKG Rhythm: NSR (EKG NOTED) - Diagnosis Discharge Problem: Dizziness, Vertigo - Discharge Plan Disposition: HOME, SELF-CARE Condition: Stable Prescriptions: Meclizine HCl 25 mg PO TID PRN #30 tab PRN Reason: Dizziness - Follow ups/Referrals Follow ups/Referrals: TORRES JOHNS [Primary Care Provider] - 3 days - Instructions Instructions: Vertigo, [id number], Dizziness, [id number] Additional Instructions: RETURN TO ED IF WORSE.
[2018-02-08] MEDS ORDERED: ANTIVERT TAB 25 MG PO ONE (11:02)
[2018-02-08] MEDS ORDERED: ANTIVERT TAB 25 MG ONE (11:03)
[2018-02-08 11:06] LABS: BASOPHILS # (AUTO) 0.1 X10^3/uL (0.0-0.1); BASOPHILS % (AUTO) 1.2 % (0.2-1.0); EOSINOPHILS # (AUTO) 0.1 x10^3/uL (0.0-0.2); EOSINOPHILS % (AUTO) 2.5 % (0.9-2.9); HEMATOCRIT 36.6 % (36.0-47.0); HEMOGLOBIN 12.5 g/dL (12.0-16.0); LYMPHOCYTES # (AUTO) 1.3 X10^3/uL (1.3-2.9); LYMPHOCYTES % (AUTO) 31.6 % (21.0-51.0); MEAN CORPUSCULAR HEMOGLOBIN 29.1 pg (27.0-34.0); MEAN CORPUSCULAR HGB CONC 34.1 g/dL (33.0-35.0); MEAN CORPUSCULAR VOLUME 85.3 fL (80.0-100.0); MEAN PLATELET VOLUME 8.3 fL (7.4-11.0); MONOCYTES # (AUTO) 0.4 x10^3/uL (0.3-0.8); MONOCYTES % (AUTO) 9.5 % (0.0-13.0); NEUTROPHILS # (AUTO) 2.4 x10^3/uL (2.2-4.8); NEUTROPHILS % (AUTO) 55.2 % (42.0-75.0); PLATELET COUNT 235 X10^3/uL (150.0-450.0); RED BLOOD COUNT 4.29 X10^6/uL (3.5-5.4); RED CELL DISTRIBUTION WIDTH 13.8 % (11.6-16.5); WHITE BLOOD COUNT 4.3 X10^3/uL (3.6-10.0)
[2018-02-08 11:20] LABS: BILIRUBIN,URINE NEGATIVE (NEGATIVE); BLOOD/HEMOGLOBIN,URINE 1+ (NEGATIVE); GLUCOSE, URINE NEGATIVE (NEGATIVE); KETONES,URINE NEGATIVE (NEGATIVE); LEUKOCYTE ESTERASE ,URINE 1+ (NEGATIVE); NITRITES,URINE NEGATIVE (NEGATIVE); PROTEIN,URINE NEGATIVE (NEGATIVE); UROBILINOGEN,URINE NORMAL (NORMAL)
[2018-02-08 11:22] LABS: ALANINE AMINOTRANSFERASE 23 Units/L (12-78); ALBUMIN 3.6 g/dL (3.4-5.0); ALKALINE PHOSPHATASE 62 Units/L (46-116); ASPARTATE AMINO TRANSFERASE 19 Units/L (15-37); BLOOD UREA NITROGEN 14 mg/dL (7-18); CALCIUM 8.5 mg/dL (8.5-10.1); CARBON DIOXIDE 27.3 mmol/L (21-32); CHLORIDE 103 mmol/L (98-107); CKMB % 1.7 % (<4); CREATINE KINASE 97 Units/L (26-192); CREATINE KINASE MB 1.6 ng/mL (0-4.0); CREATININE 1.06 mg/dL (0.55-1.02); SODIUM 139 mmol/L (136-145); TOTAL PROTEIN 8.4 g/dL (6.4-8.2); TROPONIN I < 0.02 ng/mL (0-1.5); eGFR BLACK RACES > 60 (>60); eGFR NON BLACK RACES 56 (>60)
[2018-02-08] MEDS ORDERED: K-LYTE EFFERVESCENT ONE (11:27)
[2018-02-08 11:30] LABS: APPEARANCE,URINE CLEAR (CLEAR); BACTERIA,URINE NEGATIVE /HPF (NEGATIVE); COLOR,URINE YELLOW (YELLOW); RBC,URINE 0-2 /HPF (NONE SEEN); SQUAMOUS EPITHELIAL CELL,UR MODERATE /HPF (NEGATIVE)
[2018-02-08 11:49] VITALS: BP 138/54
--- NOTE | 2018-02-08 11:51 | CT ---
HISTORY: Dizziness and ataxia NONCONTRAST HEAD CT EXAMINATION Comparison: Head CT exam dated 07/03/2017. Technique: Multiple axial images of the brain were obtained from the skull base to the vertex without administra tion of IV contrast. Findings: Subtle but chronic appearing bilateral cerebellar hemisphere encephalomalacia seen. There i s moderate sulcal and cisternal prominence as well as atherosclerotic change in the proximal intracra nial carotid and vertebral arteries, which is not out of proportion to the patient's stated age. Ther e is diffuse CT density alteration seen in the periventricular white matter of the high and mid-conve xity, which is likely in the setting of small vessel disease and not out of proportion to the patient 's stated age. There is mild bilateral ex vacuo ventricular dilatation without evidence for hydroceph alus or herniation syndrome. No midline shift is evident. No acute intraparenchymal hemorrhage or mas s can be identified. No extra-axial fluid collections are seen. No alteration in the attenuation of the brain parenchyma can be identified to suggest acute or subacute ischemic change. If the patient 's clinical signs persist, MRI imaging the brain is recommended. The extracranial structures are stab le. The paranasal sinuses are clear. IMPRESSION: 1. No acute intracranial process or changes identified. 2. Age-appropriate intra-cranial changes of advancing age. Reported By:
[2018-02-08] MEDS ORDERED: K-LYTE EFFERVESCENT PO SCH (12:00)
== END 2018-02-08 12:28 | disposition home or self-care (01) ==
LOC: ER 10:07
DX: R42 Dizziness and giddiness (principal); R94.31 Abnormal electrocardiogram [ECG] [EKG]; R51 Headache
CPT/HCPCS: 36415; 70450; 80053; 81001; 82550; 82553; 84484; 85025; 93005; 93010; 99283; 99285

== ENCOUNTER 2018-03-18 13:09 | Observation (INO) | payer SELFPAY ==
[2018-03-18] MEDS ORDERED: ZOFRAN INJ 4 MG VIAL 16 MG, ATIVAN INJ 2 MG VIAL 1 MG, DECADRON INJ 10 MG in NS 50 ML I... IV PRN (13:52)
[2018-03-18 14:16] LABS: BASOPHILS # (AUTO) 0.1 X10^3/uL (0.0-0.1); BASOPHILS % (AUTO) 1.2 % (0.2-1.0); EOSINOPHILS # (AUTO) 0.1 x10^3/uL (0.0-0.2); EOSINOPHILS % (AUTO) 1.8 % (0.9-2.9); HEMATOCRIT 35.9 % (36.0-47.0); HEMOGLOBIN 12.3 g/dL (12.0-16.0); LYMPHOCYTES # (AUTO) 1.7 X10^3/uL (1.3-2.9); LYMPHOCYTES % (AUTO) 34.9 % (21.0-51.0); MEAN CORPUSCULAR HEMOGLOBIN 29.3 pg (27.0-34.0); MEAN CORPUSCULAR HGB CONC 34.2 g/dL (33.0-35.0); MEAN CORPUSCULAR VOLUME 85.5 fL (80.0-100.0); MEAN PLATELET VOLUME 7.7 fL (7.4-11.0); MONOCYTES # (AUTO) 0.5 x10^3/uL (0.3-0.8); MONOCYTES % (AUTO) 9.6 % (0.0-13.0); NEUTROPHILS # (AUTO) 2.6 x10^3/uL (2.2-4.8); NEUTROPHILS % (AUTO) 52.5 % (42.0-75.0); PLATELET COUNT 232 X10^3/uL (150.0-450.0); RED BLOOD COUNT 4.19 X10^6/uL (3.5-5.4); RED CELL DISTRIBUTION WIDTH 14.4 % (11.6-16.5); WHITE BLOOD COUNT 4.9 X10^3/uL (3.6-10.0)
--- NOTE | 2018-03-18 14:34 | RAD ---
Indication: Shortness of breath Exam: PA and lateral Comparison: 10/23/2017 Findings: The heart is normal. The pulmonary vessels are normal. No consolidation or effusion is seen . The bones are intact. Impression: Stable chest with no acute abnormality seen. Reported By:
[2018-03-18 14:37] LABS: ALANINE AMINOTRANSFERASE 26 Units/L (12-78); ALBUMIN 3.4 g/dL (3.4-5.0); ALKALINE PHOSPHATASE 62 Units/L (46-116); ASPARTATE AMINO TRANSFERASE 23 Units/L (15-37); BLOOD UREA NITROGEN 10 mg/dL (7-18); CALCIUM 8.3 mg/dL (8.5-10.1); CARBON DIOXIDE 27.1 mmol/L (21-32); CHLORIDE 104 mmol/L (98-107); CKMB % 1.3 % (<4); CREATINE KINASE 96 Units/L (26-192); CREATINE KINASE MB 1.2 ng/mL (0-4.0); CREATININE 1.02 mg/dL (0.55-1.02); SODIUM 139 mmol/L (136-145); TROPONIN I < 0.02 ng/mL (0-1.5); eGFR BLACK RACES > 60 (>60); eGFR NON BLACK RACES 59 (>60)
[2018-03-18] MEDS ORDERED: K-RIDER 10 MEQ/NS 100 ML 10 MEQ/100 ML BAG IV PRN (14:49)
[2018-03-18] MEDS ORDERED: POTASSIUM CHLORIDE LIQ 20 MEQ UDC PO PRN (14:49)
[2018-03-18] MEDS ORDERED: POTASSIUM CHL 60 MEQ/NS 0.45% 500 ML IV PRN (14:49)
[2018-03-18] MEDS ORDERED: K-LYTE EFFERVESCENT PO PRN (14:49)
[2018-03-18] MEDS ORDERED: POTASSIUM CHL 40 MEQ/NS 0.45% 500 ML IV PRN (14:49)
[2018-03-18] MEDS: NS 500 ML IV 500 ML IV PRN ×2 (16:05→23:00)
[2018-03-18 17:59] LABS: BILIRUBIN,URINE NEGATIVE (NEGATIVE); BLOOD/HEMOGLOBIN,URINE NEGATIVE (NEGATIVE); GLUCOSE, URINE NEGATIVE (NEGATIVE); KETONES,URINE NEGATIVE (NEGATIVE); LEUKOCYTE ESTERASE ,URINE 1+ (NEGATIVE); NITRITES,URINE NEGATIVE (NEGATIVE); PROTEIN,URINE NEGATIVE (NEGATIVE); UROBILINOGEN,URINE NORMAL (NORMAL)
[2018-03-18 18:09] LABS: APPEARANCE,URINE CLEAR (CLEAR); BACTERIA,URINE TRACE /HPF (NEGATIVE); COLOR,URINE YELLOW (YELLOW); MUCUS,URINE RARE /HPF (NEGATIVE); RBC,URINE NONE SEEN /HPF (NONE SEEN); SQUAMOUS EPITHELIAL CELL,UR RARE /HPF (NEGATIVE)
--- NOTE | 2018-03-18 18:09 | DR.H&P ---
H&P - History & Physical for Day of: H&P Date: 03/18/18 - Chief Complaint Chief Complaint: weakness, dizziness, fainting episodes, sob - Allergies Allergies/Adverse Reactions: Allergies Allergy/AdvReac Type Severity Reaction Status Date / Time Sulfa (Sulfonamide Allergy Verified 02/08/18 10:03 Antibiotics) - History of Present Illness History of Present Illness: [address] RAI OFFICE WITH CO WEAKNESS, DIZZINESS WITH SYNCOPE, SOB. PT HAS HAD CO DIZZINESS AND STEINER, RECENTLY HAD OP CT HEAD NORMAL FOR ACUTE FINDINGS. PT HAS PMH OF HTN AND OA. PT BP HAS BEEN STABLE, PT CO POOR PO INTAKE AND APPROX 25 WEIGHT LOSS. PT STATES SHE HAS HAD TROUBLE TO LOW POTASSIUM, CURRENTLY TAKING POTASSIUM SUPPLEMENT. PT HAD 2ND SYNOCPE EPISODE AT WORK FOUND BY CO-WORKERS WITHOUT CO CHEST PAIN. PT ADMITTED FOR TREATMENT AND EVALUATION OF SYNCOPAL EPISODES, SOB, WEIGHT LOSS AND WEAKNESS - Past Medical History Past Medical History: Anxiety, Arthritis, COPD, Depression, Hypertension - Past Surgical History Surgical History: Cholecystectomy, [employer] Surgery - Family History Family Medical History: Diabetes Mellitus, Cancer, [place], Hypertension - Social History Does patient currently use any type of tobacco product: No Have you used tobacco products in the last 12 months: No Type of Tobacco Use: None Alcohol Use: None Drug Use: None - Review of Systems Constitutional: Weakness Eyes: No Symptoms Reported ENT: No Symptoms Reported Respiratory: Shortness of Breath, SOB with Excertion Cardiovascular: Light Headedness Gastrointestinal: Other (WEIGHT LOSS,POOR APPETITE) Genitourinary: No Symptoms Reported Musculoskeletal: Back Pain Skin: No Symptoms Reported Neurological: Weakness - Physical Exam Vital Signs: Temperature 98.2 F Pulse Rate [Left Brachial] 58 Respiratory Rate 18 Blood Pressure [Right Arm] 108/61 Blood Pressure [Left Arm] 123/61 Blood Pressure [Standing] 128/74 Blood Pressure [Sitting] 122/71 Blood Pressure [Lying] 137/68 Blood Pressure 138/54 O2 Sat by Pulse Oximetry 97 Oriented: Normal Eyes: Normal Ear: Normal Nose: Normal Throat: Normal Respiratory: Clear Throughout Cardiovascular: Normal. negative: Edema : Normal Auscultation: Bowel Sounds: Normal Palpation: Normal Tenderness: Epigastric Skin: Decreased Turgur Musculoskeletal: Back:Thoracic, Back:Lumbar Psychiatric: Anxiety Affect: Anxious Speech Pattern: Clear, Appropriate - Assessment/Plan (1) Syncopal episodes Status: Acute Plan: ADMIT, EKG CXR ON ADMISSION. CE'S, DD DEZ. CBC CMP UA. CAROTID DOPPLER , CONTINUE HOME BP MEDICATION. IV HYDRATION, POTASSIUM REPLACEMENT, HOLD ANY HOME DIURETICS. REGULAR DIET, STOOL STUDIES FOR CHRONIC ABD PAIN AND WEIGHT LOSS (2) SOB (shortness of breath) Status: Acute (3) Dizziness Status: Acute (4) Hypokalemia Status: Acute (5) HTN (hypertension) Status: Chronic
--- NOTE | 2018-03-18 21:21 | VAS ---
Ultrasound carotid Indication: Dizziness, syncope and headache Comparison: CT head from 02/08/2018 Technique: Dynamic grayscale, color and spectral Doppler imaging through the carotid artery's bilater ally. Findings: Right: No large calcified plaque identified Distal CCA, peak systolic velocity: 89.5 centimeters/second Proximal ICA, peak systolic velocity: 91.5 centimeters/second Proximal ICA, end-diastolic velocity: 24.1 centimeters/second ICA to CCA ratio: 1.02 Vertebral artery flow is anterograde, with somewhat blunted waveforms. ECA is patent Left: No marked plaque seen Distal CCA, peak systolic velocity: 103.8 centimeters/second Proximal ICA, peak systolic velocity: 116.2 centimeters/second Proximal ICA, end-diastolic velocity: 35.6 centimeters/second ICA to CCA ratio: 1.12 Vertebral artery flow is anterior grade. The ECA is patent The thyroid gland is enlarged and heterogeneous. Impression: 1. No hemodynamically significant stenosis by NASCET criteria. Less than 50% stenosis by NASCET crite olivier. 2. Somewhat blunted waveforms in the right vertebral artery are nonspecific but right subclavian sten osis is possible. Consider nonemergent angiogram follow-up 3. Enlarged thyroid gland. Dedicated thyroid ultrasound should be considered Reported By:
[2018-03-18] MEDS: PEPCID 20 MG IV PREMIX* 20 MG/50 ML BAG IV SCH (22:12)
[2018-03-19] MEDS: MAGNESIUM SULFATE 1 GM/100 mL PREMIX 1 GM/100 ML BAG IV PRN ×2 (00:05→01:12)
[2018-03-19 00:16] LABS: STOOL FOR WBC NEGATIVE (NEGATIVE)
[2018-03-19 00:58] LABS: CRYPTOSPORIDIUM PARVUM ANTIGEN NEGATIVE (NEGATIVE); GIARDIA LAMBLIA ANTIGEN NEGATIVE (NEGATIVE)
[2018-03-19 06:16] LABS: BASOPHILS # (AUTO) 0.1 X10^3/uL (0.0-0.1); BASOPHILS % (AUTO) 1.2 % (0.2-1.0); EOSINOPHILS # (AUTO) 0.1 x10^3/uL (0.0-0.2); EOSINOPHILS % (AUTO) 2.9 % (0.9-2.9); HEMATOCRIT 34.4 % (36.0-47.0); HEMOGLOBIN 11.8 g/dL (12.0-16.0); LYMPHOCYTES # (AUTO) 1.9 X10^3/uL (1.3-2.9); LYMPHOCYTES % (AUTO) 42.2 % (21.0-51.0); MEAN CORPUSCULAR HEMOGLOBIN 29.4 pg (27.0-34.0); MEAN CORPUSCULAR HGB CONC 34.2 g/dL (33.0-35.0); MEAN PLATELET VOLUME 8.1 fL (7.4-11.0); MONOCYTES # (AUTO) 0.5 x10^3/uL (0.3-0.8); MONOCYTES % (AUTO) 10.6 % (0.0-13.0); NEUTROPHILS % (AUTO) 43.1 % (42.0-75.0); PLATELET COUNT 215 X10^3/uL (150.0-450.0); RED CELL DISTRIBUTION WIDTH 14.7 % (11.6-16.5); WHITE BLOOD COUNT 4.6 X10^3/uL (3.6-10.0)
[2018-03-19 06:34] LABS: ALANINE AMINOTRANSFERASE 22 Units/L (12-78); ALKALINE PHOSPHATASE 58 Units/L (46-116); ASPARTATE AMINO TRANSFERASE 16 Units/L (15-37); BLOOD UREA NITROGEN 10 mg/dL (7-18); CALCIUM 8.3 mg/dL (8.5-10.1); CARBON DIOXIDE 27.6 mmol/L (21-32); CHLORIDE 106 mmol/L (98-107); COR CA(FOR HYPOALB) 9.1 mg/dL (8.5-10.1); CREATININE 0.96 mg/dL (0.55-1.02); SODIUM 140 mmol/L (136-145); eGFR BLACK RACES > 60 (>60); eGFR NON BLACK RACES > 60 (>60)
[2018-03-19] MEDS: ASPIRIN EC 81 MG PO SCH (09:46)
[2018-03-19] MEDS: CELEXA PO SCH (09:46)
[2018-03-19] MEDS: CRESTOR TAB 10 MG PO SCH ×2 (09:46→20:37)
[2018-03-19] MEDS: ZESTRIL TAB 5 MG PO SCH (09:47)
[2018-03-19] MEDS: PEPCID 20 MG IV PREMIX* 20 MG/50 ML BAG IV SCH ×2 (09:47→20:37)
--- NOTE | 2018-03-19 17:22 | CT ---
CT ANGIOGRAPHY NECK CLINICAL HISTORY: 58-year-old female with dizziness and syncopal episode with headache. COMPARISON: None. TECHNIQUE: Multiple axial CT images were obtained from the skull base to the aortic arch prior to an d following the administration of IV contrast and reformatted in the sagittal and coronal planes. MIP reformats are submitted. FINDINGS: Bovine arch anatomy with left common carotid and innominate artery sharing a common origin common normal variant. The origins of the common carotid and vertebral arteries are patent. There is no evidence of dissection or high grade stenosis of the carotid or vertebral systems. Left dominant v ertebral artery. The vertebral arteries terminate in a normal appearing basilar artery. The carotid b ifurcations are normal in appearance. Significant thyromegaly with right thyroid lobe extending substernally and measures 3.3 x 3.7 x 10.9 cm (AP, transverse and craniocaudad on axial and sagittal imaging). 9 mm low-attenuation nodule withi n the right thyroid lobe. Left thyroid lobe measures 3.0 x 3.6 x 8.1 cm (AP, transverse and craniocau dad on axial sagittal imaging). Subtle narrowing of the trachea without airway compromise. Remaining soft tissues of the neck are unremarkable. The visualized lung apices are clear. The osseou s structures are within normal limits. IMPRESSION: 1. No aneurysm, dissection, complete occlusion, high grade stenosis or vascular malformation of the c arotid or vertebral systems. 2. Massive thyromegaly with a substernal right thyroid lobe as described. Correlation with serology a nd ultrasound on a nonemergent outpatient basis with surgical follow-up is recommended. Reported By:
[2018-03-20 06:13] LABS: BASOPHILS # (AUTO) 0.1 X10^3/uL (0.0-0.1); BASOPHILS % (AUTO) 1.3 % (0.2-1.0); EOSINOPHILS # (AUTO) 0.1 x10^3/uL (0.0-0.2); HEMATOCRIT 34.6 % (36.0-47.0); HEMOGLOBIN 11.9 g/dL (12.0-16.0); LYMPHOCYTES # (AUTO) 1.7 X10^3/uL (1.3-2.9); LYMPHOCYTES % (AUTO) 38.9 % (21.0-51.0); MEAN CORPUSCULAR HEMOGLOBIN 29.5 pg (27.0-34.0); MEAN CORPUSCULAR HGB CONC 34.3 g/dL (33.0-35.0); MEAN CORPUSCULAR VOLUME 85.9 fL (80.0-100.0); MEAN PLATELET VOLUME 8.2 fL (7.4-11.0); MONOCYTES # (AUTO) 0.4 x10^3/uL (0.3-0.8); MONOCYTES % (AUTO) 9.7 % (0.0-13.0); NEUTROPHILS # (AUTO) 2.1 x10^3/uL (2.2-4.8); NEUTROPHILS % (AUTO) 48.1 % (42.0-75.0); PLATELET COUNT 220 X10^3/uL (150.0-450.0); RED BLOOD COUNT 4.02 X10^6/uL (3.5-5.4); RED CELL DISTRIBUTION WIDTH 14.4 % (11.6-16.5); WHITE BLOOD COUNT 4.3 X10^3/uL (3.6-10.0)
[2018-03-20 06:27] LABS: ALANINE AMINOTRANSFERASE 24 Units/L (12-78); ALBUMIN 3.1 g/dL (3.4-5.0); ALKALINE PHOSPHATASE 66 Units/L (46-116); ASPARTATE AMINO TRANSFERASE 17 Units/L (15-37); BLOOD UREA NITROGEN 10 mg/dL (7-18); CALCIUM 8.6 mg/dL (8.5-10.1); CARBON DIOXIDE 24.7 mmol/L (21-32); CHLORIDE 105 mmol/L (98-107); CHOL/HDL RATIO 5.1 (0.0-5.0); CHOLESTEROL 208 mg/dL (0-200); COR CA(FOR HYPOALB) 9.3 mg/dL (8.5-10.1); CREATININE 0.99 mg/dL (0.55-1.02); HDL CHOLESTEROL 41 mg/dL (40-60); SODIUM 139 mmol/L (136-145); TOTAL PROTEIN 7.4 g/dL (6.4-8.2); TRIGLYCERIDES 160 mg/dL (0-150); eGFR BLACK RACES > 60 (>60); eGFR NON BLACK RACES > 60 (>60)
[2018-03-20] MEDS: PEPCID 20 MG IV PREMIX* 20 MG/50 ML BAG IV SCH (09:24)
[2018-03-20] MEDS: ZESTRIL TAB 5 MG PO SCH ×2 (09:24→09:25)
[2018-03-20] MEDS: CELEXA PO SCH (09:25)
[2018-03-20] MEDS: ASPIRIN EC 81 MG PO SCH (09:25)
[2018-03-20 11:37] VITALS: BP 91/60
== END 2018-03-20 11:15 | disposition home or self-care (01) ==
LOC: MED/SURG 13:09
PROVIDERS: ADMIT Internal Medicine; ATTEND Internal Medicine
DX: R55 Syncope and collapse (principal); R06.02 Shortness of breath; R42 Dizziness and giddiness; E87.6 Hypokalemia; I10 Essential (primary) hypertension; E01.0 Iodine-deficiency related diffuse (endemic) goiter
CPT/HCPCS: 36415; 70498; 71046; 80053; 80061; 81001; 82274; 82550; 82553; 82607; 82728; 82746; 83540; 83630; 83735; 84466; 84484; 85025; 85378; 87045; 87328; 87329; 87336; 87338; 87427; 87449; 93005; 93010; 93880; A4222; S0028; G0378; J1100; J2060; J2405

== ENCOUNTER 2019-11-30 16:11 | Observation (INO) ==
--- NOTE | 2019-11-30 16:27 | DR.GENAD ---
HPI Time Seen Time Seen by Provider: 11/30/19 16:27 PCP Primary Care Physician: GOGO HINSON Complaint/Symptoms Chief Complaint Doctors Comments: Patient is a 59 year old female who presents to the Ed with left shoulder pain rating up her neck and down her arm. She states that it was chest pain initially. She states that it started last night. She's described the pain as burning and painful period she's never had this before. She has significant risk factors with family ( sisters having ID) and hypertension. She has had shortness of breath during this time. Chief Complaint:: PT. C/O LEFT SIDED NECK PAIN THAT RADIATES TO LEFT SHOULDER. PT. STATES SHE HAS FELT SHORT OF BREATH FOR A FEW DAYS AND HAS ALSO EXPERIENCED SOME TIGHTNESS TO HER CHEST. Nurses notes reviewed Nurses Notes Review: Yes Source History Provided: Patient Mode of Arrival Mode of Arrival: Ambulatory Timing Onset of Chief Complaint: 11/28/19 PMH PMH Past Medical History: Yes Past Medical History: Anxiety, Arthritis, COPD, Depression and Hypertension Past Surgical History: Yes Surgical History: Cholecystectomy and [employer] Surgery Family History History of Family Medical Conditions: Yes Family Medical History: Diabetes Mellitus, Cancer, [place] and Hypertension Social History Does patient currently use any type of tobacco product: No Have you used tobacco products in the last 12 months: No Type of Tobacco Use: None Does any household member use tobacco: No Alcohol Use: None Do you use any recreational Drugs:: No Lives With: Family Lives Where: Home infectious screening In the last 2 months have you had wt loss of >10#?: NO Have you had fever, night sweats or hemotysis?: No Have you traveled outside the country in the last 6 months?: No Isolation: Standard ROS Review of Systems Constitutional: No Symptoms Reported Eyes: No Symptoms Reported ENTM: No Symptoms Reported Respiratoy: Short of Breath Cardiovascular: Chest Pain Gastrointestinal/Abdominal: No Symptoms Reported Genitourinary: No Symptoms Reported Neurological: No Symptoms Reported Musculoskeletal: Other (neck and shoulder pain) Integumentary: No Symptoms Reported Hematologic/Lymphatic: No Symptoms Reported Endocrine: No Symptoms Reported Psychiatric: No Symptoms Reported All Other Systems: Reviewed and Negative PE Vital Signs Vitals: Temperature 97.5 F Pulse Rate 85 Respiratory Rate 32 Blood Pressure [Right Arm] 97/56 Blood Pressure [Left Arm] 91/60 Blood Pressure [Standing] 128/74 Blood Pressure [Sitting] 122/71 Blood Pressure [Lying] 137/68 Blood Pressure 138/71 O2 Sat by Pulse Oximetry 96 General Limitations: No Limitations General Appearance: Alert and In No Apparent Distress Head Head Exam: Normal Inspection, Atraumatic and Normocephalic Eyes Eye exam: Normal Appearance, PERRL and EOMI ENT ENT Exam: Normal Exam External Ear Exam: Normal External Inspection Nose Exam: Normal Nose Exam Mouth Exam: Normal Inspection Neck Neck Exam: Normal Inspection, Full ROM and Trachea Midline; negative Tenderness Chest Chest Inspection: Normal Inspection Respiratory Respiratory Exam: Normal Lung Sounds Bilat Respiratory Exam: Right: Rales Cardiovascular Cardiovascular Exam: Regular Rate Abdominal Exam Abdominal Exam: Normal Inspection, Normal Bowel Sounds and Soft Extremities Extremities Exam: Normal Inspection and Full ROM Back Back Exam: Normal Inspection and Full ROM Neurologic Neurological Exam: Alert, Oriented X3, CN II-XII Intact and Normal Gait Psychiatric Psychiatric Exam: Normal Affect and Normal Mood Skin Skin Exam: Warm, Dry, Intact and Normal Color MDM Additional Information Additional Information Obtained From: Old Records Differential Diagnosis Differential Diagnosis: ID vs CAP vs MSK pain vs ACS COURSE Treatment Treatment: ASA, given potassium in ED. Reevaluation 1st: Improved (18:54 pt is stable ) ROR Labs Reviewed Laboratory Results Reviewed?: Yes Result Diagrams: 11/30/19 16:39 11/30/19 16:39 Laboratory: WBC 6.9 X10^3/uL (3.6-10.0) 11/30/19 16:39 RBC 4.35 X10^6/uL (3.5-5.4) 11/30/19 16:39 Hgb 12.5 g/dL (12.0-16.0) 11/30/19 16:39 Hct 37.1 % (36.0-47.0) 11/30/19 16:39 MCV 85.2 fL (80.0-100.0) 11/30/19 16:39 MCH 28.8 pg (27.0-34.0) 11/30/19 16:39 MCHC 33.8 g/dL (33.0-35.0) 11/30/19 16:39 RDW 13.6 % (11.6-16.5) 11/30/19 16:39 Plt Count 252 X10^3/uL (150.0-450.0) 11/30/19 16:39 Plt Count Comment Adequate (ADEQUATE) 11/30/19 16:39 MPV 7.4 fL (7.4-11.0) 11/30/19 16:39 Neut % (Auto) 61.8 % (42.0-75.0) 11/30/19 16:39 Lymph % (Auto) 25.8 % (21.0-51.0) 11/30/19 16:39 [place] % (Auto) 9.0 % (0.0-13.0) 11/30/19 16:39 Eos % (Auto) 2.0 % (0.9-2.9) 11/30/19 16:39 Baso % (Auto) 1.4 % (0.2-1.0) H 11/30/19 16:39 Neut # (Auto) 4.3 x10^3/uL (2.2-4.8) 11/30/19 16:39 Lymph # (Auto) 1.8 X10^3/uL (1.3-2.9) 11/30/19 16:39 [place] # (Auto) 0.6 x10^3/uL (0.3-0.8) 11/30/19 16:39 Eos # (Auto) 0.1 x10^3/uL (0.0-0.2) 11/30/19 16:39 Baso # (Auto) 0.1 X10^3/uL (0.0-0.1) 11/30/19 16:39 Absolute Nucleated RBC 0.1 /100WBC 11/30/19 16:39 Total Counted 100 11/30/19 16:39 Neutrophils % (Manual) 55 % (39-76) 11/30/19 16:39 Band Neutrophils % 4 % (0-10) 11/30/19 16:39 Lymphocytes % (Manual) 36 % (13-43) 11/30/19 16:39 Monocytes % (Manual) 3 % (4-9) L 11/30/19 16:39 Eosinophils % (Manual) 2 % (0-6) 11/30/19 16:39 Plt Morphology Comment Normal (NORMAL) 11/30/19 16:39 RBC Morphology Normal (NORMAL) 11/30/19 16:39 PT 13.2 SECONDS (11.8-14.3) 11/30/19 16:39 INR Target Range - 11/30/19 16:39 INR 1.04 (0.8-1.3) 11/30/19 16:39 APTT 30.4 SECONDS (22.9-36.5) 11/30/19 16:39 PTT Comment - 11/30/19 16:39 Sodium 140 mmol/L (136-145) 11/30/19 16:39 Corrected Sodium 140 mmol/L (136-145) 11/30/19 16:39 Potassium 2.7 mmol/L (3.5-5.1) L* 11/30/19 16:39 Chloride 102 mmol/L (98-107) 11/30/19 16:39 Carbon Dioxide 29.9 mmol/L (21-32) 11/30/19 16:39 BUN 11 mg/dL (7-18) 11/30/19 16:39 Creatinine 1.05 mg/dL (0.55-1.02) H 11/30/19 16:39 Est GFR (MDRD) Af Amer > 60 (>60) 11/30/19 16:39 Est GFR (MDRD) Non-Af 57 (>60) L 11/30/19 16:39 Glucose 114 mg/dL (65-99) H 11/30/19 16:39 Calcium 8.6 mg/dL (8.5-10.1) 11/30/19 16:39 Corrected Calcium 9.2 mg/dL (8.5-10.1) 11/30/19 16:39 Total Bilirubin 0.30 mg/dL (0.2-1.0) 11/30/19 16:39 AST 18 Units/L (15-37) 11/30/19 16:39 ALT 21 Units/L (12-78) 11/30/19 16:39 Alkaline Phosphatase 69 Units/L (46-116) 11/30/19 16:39 Creatine Kinase 156 Units/L (26-192) 11/30/19 16:39 CK-MB (CK-2) 2.1 ng/mL (0-4.0) 11/30/19 16:39 CK/CKMB % Calc 1.4 % (<4) 11/30/19 16:39 Troponin I < 0.02 ng/mL (0-1.5) 11/30/19 16:39 Total Protein 8.1 g/dL (6.4-8.2) 11/30/19 16:39 Albumin 3.3 g/dL (3.4-5.0) L 11/30/19 16:39 Globulin 4.8 g/dL (2.5-4.5) H 11/30/19 16:39 Albumin/Globulin Ratio 0.7 Ratio (1.1-2.1) L 11/30/19 16:39 Other Results Comments: Name: REESE GARCIA : 1960 Sex: F Location: ER Order Number(s): [id number] Procedure(s):CHEST, 1 VIEW Ordering Physician: Denis Vaughn Primary Care: NFKay,None Service Date: 11/30/19 Service Time: 1630 HISTORY Chest pain STUDY CHEST, 1 VIEW COMPARISON October 23, 2017 FINDINGS The patient is rotated. The cardiac silhouette is unremarkable. Peribronchial thickening is noted.. Atelectasis and/or infiltrate within the right lower lobe cannot entirely be excluded. Correlate clinically. IMPRESSION Peribronchial thickening with questionable right basilar atelectasis and/or infiltrate. Correlate clinically. XRAY XRAY Interpreted by: Both Opioid Opioid Risk Tool Age (Robb box if 16-45): No History of Preadolescent Sexual Abuse: No Total: 0 Total Score Risk Category: Low Risk Copyright: [facility] predicting aberrant behaviors Diagnosis Discharge Problem: ACS (acute coronary syndrome), Acute hypokalemia, Pneumonia Narrative Support Text: Case discussed with Dr. Sreekanth Carty, he agreed to inpt workup
[2019-11-30 16:46] LABS: BASOPHILS # (AUTO) 0.1 X10^3/uL (0.0-0.1); BASOPHILS % (AUTO) 1.4 % (0.2-1.0); EOSINOPHILS # (AUTO) 0.1 x10^3/uL (0.0-0.2); HEMATOCRIT 37.1 % (36.0-47.0); HEMOGLOBIN 12.5 g/dL (12.0-16.0); LYMPHOCYTES # (AUTO) 1.8 X10^3/uL (1.3-2.9); LYMPHOCYTES % (AUTO) 25.8 % (21.0-51.0); MEAN CORPUSCULAR HEMOGLOBIN 28.8 pg (27.0-34.0); MEAN CORPUSCULAR HGB CONC 33.8 g/dL (33.0-35.0); MEAN CORPUSCULAR VOLUME 85.2 fL (80.0-100.0); MEAN PLATELET VOLUME 7.4 fL (7.4-11.0); MONOCYTES # (AUTO) 0.6 x10^3/uL (0.3-0.8); NEUTROPHILS # (AUTO) 4.3 x10^3/uL (2.2-4.8); NEUTROPHILS % (AUTO) 61.8 % (42.0-75.0); PLATELET COUNT 252 X10^3/uL (150.0-450.0); RED BLOOD COUNT 4.35 X10^6/uL (3.5-5.4); RED CELL DISTRIBUTION WIDTH 13.6 % (11.6-16.5); WHITE BLOOD COUNT 6.9 X10^3/uL (3.6-10.0)
[2019-11-30 17:04] LABS: BAND NEUTROPHILS % 4 % (0-10)
[2019-11-30 17:05] LABS: PLATELET MORPHOLOGY COMMENT NORMAL (NORMAL)
--- NOTE | 2019-11-30 17:10 | RAD ---
HISTORYChest painSTUDYCHEST, 1 VIEWCOMPARISONDecember 2016FINDINGSThe patient is rotated. The cardiac silhouette is unremarkable. Peribronchial thickening is noted.. Atelectasis and/or infiltrate within the right lower lobe cannot entirely be excluded. Correlate clinically.IMPRESSIONPeribronchial thickening with questionable right basilar atelectasis and/or infiltrate. Correlate clinically.Electronically signed by: MICHAEL FORREST (Nov 30, 2019 17:08:36)
[2019-11-30 17:11] LABS: ALANINE AMINOTRANSFERASE 21 Units/L (12-78); ALBUMIN 3.3 g/dL (3.4-5.0); ALKALINE PHOSPHATASE 69 Units/L (46-116); ASPARTATE AMINO TRANSFERASE 18 Units/L (15-37); BLOOD UREA NITROGEN 11 mg/dL (7-18); CALCIUM 8.6 mg/dL (8.5-10.1); CARBON DIOXIDE 29.9 mmol/L (21-32); CHLORIDE 102 mmol/L (98-107); CKMB % 1.4 % (<4); COR CA(FOR HYPOALB) 9.2 mg/dL (8.5-10.1); COR NA(FOR HYPERGLY) 140 mmol/L (136-145); CREATINE KINASE 156 Units/L (26-192); CREATINE KINASE MB 2.1 ng/mL (0-4.0); CREATININE 1.05 mg/dL (0.55-1.02); SODIUM 140 mmol/L (136-145); TOTAL PROTEIN 8.1 g/dL (6.4-8.2); TROPONIN I < 0.02 ng/mL (0-1.5); eGFR NON BLACK RACES 57 (>60)
--- NOTE | 2019-11-30 17:18 | RAD ---
HISTORYPAIN, NO TRAUMA Relevant Clinical InformationSTUDYSHOULDER, LEFTCOMPARISONNoneFINDINGSNo fracture dislocation is seen. There are moderate hypertrophic changes of the AC joint. The bones are osteopenic. The soft tissues are normal.IMPRESSIONModerate hypertrophic changes of the AC joint with no acute abnormality seen.Electronically signed by: LINA MISTRY (Nov 30, 2019 17:17:13)
--- NOTE | 2019-11-30 17:19 | RAD ---
HISTORYNECK PAIN THAT RADIATES DOWN RIGHT ARM Relevant Clinical InformationSTUDYCERVICAL SPINE, COMPLETECOMPARISONNoneFINDINGSThe cervical vertebral well aligned. There is moderate disc space narrowing throughout the mid and lower cervical spine with large anterior osteophytes throughout. No fracture or subluxation is seen. The prevertebral soft tissues are normal. The atlantoaxial joint is intact. The neural foramina are intact.IMPRESSIONModerate degenerative disc changes throughout the mid to lower thoracic spine with no acute abnormality seen.Electronically signed by: LINA MISTRY (Nov 30, 2019 17:18:32)
[2019-11-30] MEDS ORDERED: K-LYTE EFFERVESCENT PO ONE (17:22)
[2019-11-30] MEDS ORDERED: K-LYTE EFFERVESCENT ONE (17:23)
[2019-11-30] MEDS ORDERED: LEVAQUIN PREMIX IV 500 MG 500 MG/100 ML BAG IV ONE ×2 (17:53→18:06)
[2019-11-30] MEDS ORDERED: NS 1000 ML 1,000 ML ONE (18:06)
[2019-11-30] MEDS: NS 1000 ML 1,000 ML IV SCH (18:17)
[2019-11-30] MEDS ORDERED: ASPIRIN PO ONE (18:20)
[2019-11-30 18:43] LABS: CREATINE KINASE 161 Units/L (26-192); TROPONIN I < 0.02 ng/mL (0-1.5)
[2019-11-30 19:03] LABS: CKMB % 1.6 % (<4); CREATINE KINASE MB 2.5 ng/mL (0-4.0)
[2019-11-30 20:43] LABS: BILIRUBIN,URINE NEGATIVE (NEGATIVE); BLOOD/HEMOGLOBIN,URINE 2+ (NEGATIVE); GLUCOSE, URINE NEGATIVE (NEGATIVE); KETONES,URINE NEGATIVE (NEGATIVE); LEUKOCYTE ESTERASE ,URINE 3+ (NEGATIVE); NITRITES,URINE NEGATIVE (NEGATIVE); PH,URINE 6.5 (5.0 - 8.0); PROTEIN,URINE NEGATIVE (NEGATIVE); UROBILINOGEN,URINE NORMAL (NORMAL)
[2019-11-30 20:54] LABS: APPEARANCE,URINE SLIGHTLY HAZY (CLEAR); COLOR,URINE PALE YELLOW (YELLOW)
[2019-11-30 20:55] LABS: BACTERIA,URINE 2+ /HPF (NEGATIVE); SQUAMOUS EPITHELIAL CELL,UR FEW /HPF (NEGATIVE)
[2019-11-30] MEDS: PREDNISONE TAB 20 MG PO SCH (21:05)
[2019-11-30] MEDS ORDERED: POTASSIUM CHL 40 MEQ/NS 0.45% 500 ML IV PRN (21:08)
[2019-11-30] MEDS ORDERED: POTASSIUM CHL 60 MEQ/NS 0.45% 500 ML IV PRN (21:08)
[2019-11-30] MEDS ORDERED: MICRO K EXTEN CAP 10 MEQ PO PRN (21:08)
[2019-11-30] MEDS ORDERED: POTASSIUM CHLORIDE LIQ 20 MEQ UDC PO PRN (21:08)
[2019-11-30] MEDS ORDERED: K-DUR TAB 20 MEQ PO PRN (21:08)
[2019-11-30] MEDS ORDERED: K-RIDER 10 MEQ/NS 100 ML 10 MEQ/100 ML BAG IV PRN (21:08)
[2019-11-30 21:26] VITALS: BMI 30.6
[2019-11-30] MEDS: DUONEB 0.5 MG/3 MG (3 mL) NEB SCH (21:41)
[2019-11-30] MEDS ORDERED: SALINE 3% 15 ML NEB TX NEB ONE (21:55)
[2019-11-30] MEDS: MAGNESIUM SULFATE 1 GRAM/100 mL PREMIX 1 GM/100 ML BAG IV PRN ×2 (21:58→23:02)
[2019-11-30] MEDS: KLOR-CON PO PRN (22:06)
--- NOTE | 2019-11-30 23:01 | DR.GENAD ---
HPI Time Seen Time Seen by Provider: 11/30/19 16:27 PCP Primary Care Physician: Kat Complaint/Symptoms Chief Complaint Doctors Comments: Patient is a 59 year old female who presents with chest tightness/ left arm pain. She also states the pain radiate up her neck and left arm. She says that she also has shortness of breath. She said that this has become worse. She admits to some fevers and nausea prior to having these episodes. She has several family members with ACS and she also has several risk factors. She states she is a former smoker. Chief Complaint:: PT. C/O LEFT SIDED NECK PAIN THAT RADIATES TO LEFT SHOULDER. PT. STATES SHE HAS FELT SHORT OF BREATH FOR A FEW DAYS AND HAS ALSO EXPERIENCED SOME TIGHTNESS TO HER CHEST. Nurses notes reviewed Nurses Notes Review: Yes Source History Provided: Patient Mode of Arrival Mode of Arrival: Ambulatory Timing Onset of Chief Complaint: 11/28/19 PMH PMH Past Medical History: Yes Past Medical History: Anxiety, Arthritis, COPD, Depression and Hypertension Past Surgical History: Yes Surgical History: Cholecystectomy and AERIAL ERECTOR Surgery Family History History of Family Medical Conditions: Yes Family Medical History: Diabetes Mellitus, Cancer, [place], Coronary Artery Disease, Heart Failure and Hypertension Social History Does patient currently use any type of tobacco product: No Have you used tobacco products in the last 12 months: No Type of Tobacco Use: None Does any household member use tobacco: No Alcohol Use: None Do you use any recreational Drugs:: No Lives With: Alone Lives Where: Home infectious screening In the last 2 months have you had wt loss of >10#?: NO Have you had fever, night sweats or hemotysis?: No Have you traveled outside the country in the last 6 months?: No Isolation: Standard ROS Review of Systems Constitutional: No Symptoms Reported Eyes: No Symptoms Reported ENTM: No Symptoms Reported Respiratoy: Short of Breath Cardiovascular: Chest Pain Gastrointestinal/Abdominal: Nausea Genitourinary: No Symptoms Reported Neurological: No Symptoms Reported Musculoskeletal: No Symptoms Reported, Neck Pain, Neck and Arm Integumentary: No Symptoms Reported Hematologic/Lymphatic: No Symptoms Reported Endocrine: No Symptoms Reported Psychiatric: No Symptoms Reported All Other Systems: Reviewed and Negative PE Vital Signs Vitals: Temperature 97.5 F Pulse Rate 85 Respiratory Rate 32 Blood Pressure [Right Arm] 97/56 Blood Pressure [Left Arm] 91/60 Blood Pressure [Standing] 128/74 Blood Pressure [Sitting] 122/71 Blood Pressure [Lying] 137/68 Blood Pressure 138/71 O2 Sat by Pulse Oximetry 96 General Limitations: No Limitations General Appearance: Alert, Anxious and In Distress (mild ) Head Head Exam: Normal Inspection, Atraumatic and Normocephalic Eyes Eye exam: Normal Appearance and EOMI ENT ENT Exam: Normal Exam Chest Chest Inspection: Normal Inspection and Symmetric Chest Wall Rise Respiratory Respiratory Exam: Normal Lung Sounds Bilat and Accessory Muscle Use Respiratory Exam: Bilateral: Rales Cardiovascular Cardiovascular Exam: Regular Rate and Normal Rhythm Abdominal Exam Abdominal Exam: Normal Inspection, Normal Bowel Sounds and Soft Extremities Extremities Exam: Normal Inspection and Full ROM Back Back Exam: Normal Inspection Psychiatric Psychiatric Exam: Normal Affect, Normal Mood and Depressed Skin Skin Exam: Warm, Dry, Intact and Normal Color MDM Differential Diagnosis Differential Diagnosis: [place] vs ACS vs PE vs PNA vs viral illness vs msk pain vs shoulder OA COURSE Treatment Treatment: ASA, potassium Reevaluation 1st: Improved Consultation Consultation Comments: discussed plan with hospitalist and they agreed to admit pt, see EMR for full details Education/Counseling Education/Counseling: Patient, Family, Education and Counseling Educated On: Treatment, Diagnosis, Prognosis and Needs for Follow Up ROR Labs Reviewed Result Diagrams: 11/30/19 16:39 11/30/19 20:02 Laboratory: WBC 6.9 X10^3/uL (3.6-10.0) 11/30/19 16:39 RBC 4.35 X10^6/uL (3.5-5.4) 11/30/19 16:39 Hgb 12.5 g/dL (12.0-16.0) 11/30/19 16:39 Hct 37.1 % (36.0-47.0) 11/30/19 16:39 MCV 85.2 fL (80.0-100.0) 11/30/19 16:39 MCH 28.8 pg (27.0-34.0) 11/30/19 16:39 MCHC 33.8 g/dL (33.0-35.0) 11/30/19 16:39 RDW 13.6 % (11.6-16.5) 11/30/19 16:39 Plt Count 252 X10^3/uL (150.0-450.0) 11/30/19 16:39 Plt Count Comment Adequate (ADEQUATE) 11/30/19 16:39 MPV 7.4 fL (7.4-11.0) 11/30/19 16:39 Neut % (Auto) 61.8 % (42.0-75.0) 11/30/19 16:39 Lymph % (Auto) 25.8 % (21.0-51.0) 11/30/19 16:39 [place] % (Auto) 9.0 % (0.0-13.0) 11/30/19 16:39 Eos % (Auto) 2.0 % (0.9-2.9) 11/30/19 16:39 Baso % (Auto) 1.4 % (0.2-1.0) H 11/30/19 16:39 Neut # (Auto) 4.3 x10^3/uL (2.2-4.8) 11/30/19 16:39 Lymph # (Auto) 1.8 X10^3/uL (1.3-2.9) 11/30/19 16:39 [place] # (Auto) 0.6 x10^3/uL (0.3-0.8) 11/30/19 16:39 Eos # (Auto) 0.1 x10^3/uL (0.0-0.2) 11/30/19 16:39 Baso # (Auto) 0.1 X10^3/uL (0.0-0.1) 11/30/19 16:39 Absolute Nucleated RBC 0.1 /100WBC 11/30/19 16:39 Total Counted 100 11/30/19 16:39 Neutrophils % (Manual) 55 % (39-76) 11/30/19 16:39 Band Neutrophils % 4 % (0-10) 11/30/19 16:39 Lymphocytes % (Manual) 36 % (13-43) 11/30/19 16:39 Monocytes % (Manual) 3 % (4-9) L 11/30/19 16:39 Eosinophils % (Manual) 2 % (0-6) 11/30/19 16:39 Plt Morphology Comment Normal (NORMAL) 11/30/19 16:39 RBC Morphology Normal (NORMAL) 11/30/19 16:39 PT 13.2 SECONDS (11.8-14.3) 11/30/19 16:39 INR Target Range - 11/30/19 16:39 INR 1.04 (0.8-1.3) 11/30/19 16:39 APTT 30.4 SECONDS (22.9-36.5) 11/30/19 16:39 PTT Comment - 11/30/19 16:39 Sodium 140 mmol/L (136-145) 11/30/19 16:39 Corrected Sodium 140 mmol/L (136-145) 11/30/19 16:39 Potassium 2.7 mmol/L (3.5-5.1) L* 11/30/19 16:39 Chloride 102 mmol/L (98-107) 11/30/19 16:39 Carbon Dioxide 29.9 mmol/L (21-32) 11/30/19 16:39 BUN 11 mg/dL (7-18) 11/30/19 16:39 Creatinine 1.05 mg/dL (0.55-1.02) H 11/30/19 16:39 Est GFR (MDRD) Af Amer > 60 (>60) 11/30/19 16:39 Est GFR (MDRD) Non-Af 57 (>60) L 11/30/19 16:39 Glucose 114 mg/dL (65-99) H 11/30/19 16:39 Calcium 8.6 mg/dL (8.5-10.1) 11/30/19 16:39 Corrected Calcium 9.2 mg/dL (8.5-10.1) 11/30/19 16:39 Total Bilirubin 0.30 mg/dL (0.2-1.0) 11/30/19 16:39 AST 18 Units/L (15-37) 11/30/19 16:39 ALT 21 Units/L (12-78) 11/30/19 16:39 Alkaline Phosphatase 69 Units/L (46-116) 11/30/19 16:39 Creatine Kinase 156 Units/L (26-192) 11/30/19 16:39 CK-MB (CK-2) 2.1 ng/mL (0-4.0) 11/30/19 16:39 CK/CKMB % Calc 1.4 % (<4) 11/30/19 16:39 Troponin I < 0.02 ng/mL (0-1.5) 11/30/19 16:39 Total Protein 8.1 g/dL (6.4-8.2) 11/30/19 16:39 Albumin 3.3 g/dL (3.4-5.0) L 11/30/19 16:39 Globulin 4.8 g/dL (2.5-4.5) H 11/30/19 16:39 Albumin/Globulin Ratio 0.7 Ratio (1.1-2.1) L 11/30/19 16:39 Opioid Opioid Risk Tool Age (Robb box if 16-45): No History of Preadolescent Sexual Abuse: No Total: 0 Total Score Risk Category: Low Risk Copyright: Chris ACE predicting aberrant behaviors Diagnosis Discharge Problem: ACS (acute coronary syndrome), Acute hypokalemia Pneumonia Qualifiers: Pneumonia type: due to unspecified organism Laterality: right Lung location: lower lobe of lung Qualified Code(s): J18.9 - Pneumonia, unspecified organism Narrative Support Text: admitted to hospitalist
[2019-12-01] MEDS ORDERED: NS + KCL 20 MEQ/L 1,000 ML IV ONE (01:05)
[2019-12-01 01:21] LABS: CKMB % 0.9 % (<4); CREATINE KINASE 161 Units/L (26-192); CREATINE KINASE MB 1.4 ng/mL (0-4.0); TROPONIN I < 0.02 ng/mL (0-1.5)
[2019-12-01] MEDS: NS + KCL 20 MEQ/L 1,000 ML IV SCH ×2 (01:22→16:30)
[2019-12-01 05:31] LABS: BASOPHILS % (AUTO) 0.6 % (0.2-1.0); EOSINOPHILS % (AUTO) 0.1 % (0.9-2.9); HEMATOCRIT 35.7 % (36.0-47.0); HEMOGLOBIN 12.1 g/dL (12.0-16.0); LYMPHOCYTES # (AUTO) 0.8 X10^3/uL (1.3-2.9); LYMPHOCYTES % (AUTO) 17.5 % (21.0-51.0); MEAN CORPUSCULAR HGB CONC 33.9 g/dL (33.0-35.0); MEAN CORPUSCULAR VOLUME 85.5 fL (80.0-100.0); MEAN PLATELET VOLUME 7.6 fL (7.4-11.0); MONOCYTES # (AUTO) 0.1 x10^3/uL (0.3-0.8); MONOCYTES % (AUTO) 1.3 % (0.0-13.0); NEUTROPHILS # (AUTO) 3.5 x10^3/uL (2.2-4.8); NEUTROPHILS % (AUTO) 80.5 % (42.0-75.0); PLATELET COUNT 215 X10^3/uL (150.0-450.0); RED BLOOD COUNT 4.17 X10^6/uL (3.5-5.4); RED CELL DISTRIBUTION WIDTH 13.9 % (11.6-16.5); WHITE BLOOD COUNT 4.4 X10^3/uL (3.6-10.0)
[2019-12-01 06:10] LABS: ALANINE AMINOTRANSFERASE 18 Units/L (12-78); ALBUMIN 3.2 g/dL (3.4-5.0); ALKALINE PHOSPHATASE 67 Units/L (46-116); ASPARTATE AMINO TRANSFERASE 17 Units/L (15-37); BLOOD UREA NITROGEN 12 mg/dL (7-18); CALCIUM 8.8 mg/dL (8.5-10.1); CHLORIDE 104 mmol/L (98-107); CKMB % 1.1 % (<4); COR CA(FOR HYPOALB) 9.4 mg/dL (8.5-10.1); COR NA(FOR HYPERGLY) 139 mmol/L (136-145); CREATINE KINASE 140 Units/L (26-192); CREATINE KINASE MB 1.6 ng/mL (0-4.0); CREATININE 1.08 mg/dL (0.55-1.02); MAGNESIUM 2.3 mg/dL (1.7-2.9); SODIUM 138 mmol/L (136-145); TROPONIN I < 0.02 ng/mL (0-1.5); eGFR NON BLACK RACES 55 (>60)
[2019-12-01] MEDS: ASPIRIN 81 MG CHEWTAB PO SCH (09:47)
[2019-12-01] MEDS: PREDNISONE TAB 20 MG PO SCH (09:48)
[2019-12-01] MEDS: DUONEB 0.5 MG/3 MG (3 mL) NEB SCH ×4 (09:59→20:57)
--- NOTE | 2019-12-01 12:22 | US ---
HISTORYSwelling and trouble swallowing. Prior history of thyroid enlargement.STUDYThyroid [id number].TECHNIQUEGrayscale and color Doppler ultrasound of the thyroid gland i s provided.FINDINGSAlthough smaller than on the prior study, both thyroid lobes are still enlarged an d the isthmus is thickened.Right thyroid gland measures 3.12 x 3.91 x 5.89 centimeters. There is incr eased color Doppler flow. Nodules are present measuring 1.04 and 1.51 centimeters respectively. The 1 .04 centimeter nodule is mix, predominantly cystic. the 1.5 no nodule is mixed cystic and solid and i s predominantly solid and isoechoic, without calcifications.Isthmus measures 13 millimeters in thickn ess and is heterogeneous without discrete nodule.The left thyroid gland measures 2.52 x 4.14 x 6.21 c entimeters. There is an isoechoic solid nodule present on the left in the midpole region measuring up to 2.8 centimeters in maximum dimension. This is without calcification. The nodule appears to be sli ghtly larger compared to the prior study. This does represent a dominant nodule in should be consider ed for ultrasound-guided FNA biopsy.No evidence of jugular adenopathy is seen.IMPRESSIONAlthough stil l enlarged, the thyroid lobes appears smaller compared to the prior study. Increased color Doppler fl ow is seen bilaterally.The isoechoic solid nodule on the left is slightly larger compared to the prio r study. An ultrasound-guided FNA biopsy should be considered.Electronically signed by: ANGELA ROWAN ( Dec 01, 2019 12:21:23)
[2019-12-01] MEDS: LOVENOX INJ 40 MG SYR SC SCH (12:45)
--- NOTE | 2019-12-01 13:22 | DR.H&P ---
H&P - History & Physical for Day of: H&P Date: 12/01/19 - Chief Complaint Chief Complaint: ADMIT, IV HYDRATION. POTASSIUM REPLACEMENT, PNEUMONIA PROTOCOL. CXR ON ADMISSION, SPUTUM CULTURE. RESP THERAPY, AM LABS - History of Present Illness History of Present Illness: Patient is a 59 year old female who presents with chest tightness/ left arm pain. She also states the pain radiate up her neck and left arm. She says that she also has shortness of breath. She said that this has become worse. She admits to some fevers and nausea prior to having these episodes. She has several family members with ACS and she also has several risk factors. She states she is a former smoker. - Past Medical History Past Medical History: Hypertension, Depression, Anxiety, COPD, Arthritis - Past Surgical History Surgical History: Cholecystectomy, CAR PRE COOLER Surgery - Family History Family Medical History: Diabetes Mellitus, Cancer, [place], Coronary Artery Disease, Heart Failure, Hypertension - Social History Does patient currently use any type of tobacco product: No Have you used tobacco products in the last 12 months: No Type of Tobacco Use: None Does any household member use tobacco: No Alcohol Use: None Drug Use: None - Medications Home Medications: Sulfa (Sulfonamide Antibiotics) Allergy (Verified 02/07/19 11:49) - Review of Systems Constitutional: Weakness Eyes: No Symptoms Reported ENT: No Symptoms Reported Respiratory: No Symptoms Reported, Shortness of Breath Cardiovascular: No Symptoms Reported Gastrointestinal: No Symptoms Reported Genitourinary: No Symptoms Reported Musculoskeletal: Shoulder Pain, Back Pain, Neck Pain Skin: No Symptoms Reported Neurological: Weakness - Physical Exam Vital Signs: Temperature 99 F Pulse Rate [Right Brachial] 78 Pulse Rate 65 Respiratory Rate 20 Blood Pressure [Right Arm] 149/72 Blood Pressure [Left Arm] 129/60 Blood Pressure [Standing] 128/74 Blood Pressure [Sitting] 122/71 Blood Pressure [Lying] 137/68 Blood Pressure 166/68 O2 Sat by Pulse Oximetry 96 Oriented: Normal Eyes: Normal Ear: Normal Nose: Normal Throat: Dry Respiratory: RLL Diminished, LLL Diminished Cardiovascular: Normal : Normal Auscultation: Bowel Sounds: Normal Palpation: Normal Tenderness: Epigastric, Mild Skin: Decreased Turgur Psychiatric: Normal Mood Description: Anxious Affect: Anxious Speech Pattern: Clear, Appropriate - Assessment/Plan (1) Pneumonia Qualifiers: Pneumonia type: due to unspecified organism Laterality: right Lung location: lower lobe of lung Qualified Code(s): J18.9 - Pneumonia, unspecified organism Status: Acute Plan: ADMIT, PNEUMONIA PROTOCOL, IV HYDRATION. SPUTUM ON ADMISSION, CXR ON ADMISSION. CE AND EKG. BP CONTROL. POTASSIUM REPLACMENT, VERIFY HOME MEDICATION (2) COPD (chronic obstructive pulmonary disease) Status: Acute (3) Chest pain Qualifiers: Chest pain type: precordial pain Qualified Code(s): R07.2 - Precordial pain Status: Acute (4) Hypokalemia Status: Acute (5) HTN (hypertension) Status: Chronic - Allergies Allergies/Adverse Reactions: Allergies Allergy/AdvReac Type Severity Reaction Status Date / Time Sulfa (Sulfonamide Allergy Verified 02/07/19 11:49 Antibiotics)
[2019-12-01 13:37] LABS: CHOL/HDL RATIO 4.5 (0.0-5.0); TSH (3RD GENERATION) 2.078 uIU/mL (0.358-3.74)
[2019-12-01 15:36] LABS: MYCOPLASMA PNEUMONIAE IGM AB NEGATIVE (NEGATIVE)
[2019-12-01] MEDS ORDERED: ROBITUSSIN DM PO PRN (18:27)
[2019-12-01] MEDS ORDERED: TUSSIONEX PENNKINETIC SUSP PO PRN (18:27)
[2019-12-01] MEDS: ZITHROMAX INJ 500 MG VIAL 500 MG in NS 250 ML IV 250 ML IV SCH (20:39)
[2019-12-01] MEDS: ROCEPHIN VIAL 1 GRAM 1 G in NS 100 ML IV + SPIKE MINIBAG* 100 ML IV SCH (20:39)
[2019-12-01] MEDS ORDERED: NS 1000 ML 1,000 ML ONE (21:58)
[2019-12-01] MEDS: NS 1000 ML 1,000 ML IV SCH (22:10)
[2019-12-02 06:14] LABS: BASOPHILS # (AUTO) 0.1 X10^3/uL (0.0-0.1); BASOPHILS % (AUTO) 0.9 % (0.2-1.0); HEMATOCRIT 34.4 % (36.0-47.0); HEMOGLOBIN 11.6 g/dL (12.0-16.0); LYMPHOCYTES % (AUTO) 16.6 % (21.0-51.0); MEAN CORPUSCULAR HGB CONC 33.7 g/dL (33.0-35.0); MEAN CORPUSCULAR VOLUME 86.2 fL (80.0-100.0); MEAN PLATELET VOLUME 8.1 fL (7.4-11.0); MONOCYTES # (AUTO) 0.8 x10^3/uL (0.3-0.8); MONOCYTES % (AUTO) 6.2 % (0.0-13.0); NEUTROPHILS # (AUTO) 9.4 x10^3/uL (2.2-4.8); NEUTROPHILS % (AUTO) 76.3 % (42.0-75.0); PLATELET COUNT 230 X10^3/uL (150.0-450.0); RED BLOOD COUNT 3.99 X10^6/uL (3.5-5.4); RED CELL DISTRIBUTION WIDTH 14.3 % (11.6-16.5); WHITE BLOOD COUNT 12.4 X10^3/uL (3.6-10.0)
[2019-12-02 06:23] LABS: ALANINE AMINOTRANSFERASE 16 Units/L (12-78); ALBUMIN 2.9 g/dL (3.4-5.0); ALKALINE PHOSPHATASE 60 Units/L (46-116); ASPARTATE AMINO TRANSFERASE 13 Units/L (15-37); BLOOD UREA NITROGEN 17 mg/dL (7-18); CALCIUM 8.4 mg/dL (8.5-10.1); CARBON DIOXIDE 26.1 mmol/L (21-32); CHLORIDE 108 mmol/L (98-107); COR CA(FOR HYPOALB) 9.3 mg/dL (8.5-10.1); SODIUM 142 mmol/L (136-145); TOTAL PROTEIN 7.2 g/dL (6.4-8.2); eGFR NON BLACK RACES > 60 (>60)
[2019-12-02] MEDS: KLOR-CON PO PRN ×2 (06:37→20:30)
[2019-12-02] MEDS: DUONEB 0.5 MG/3 MG (3 mL) NEB SCH ×4 (08:59→20:35)
--- NOTE | 2019-12-02 11:21 | RAD ---
HISTORYpneumonia, ocugh, congestionSTUDANTHONY, PA/LAT ADULTCOMPARISONDecember 2016FINDINGSThe patient is rotated. The cardiac silhouette approaches the upper limits of normal. Peribronchial thickening is noted bilaterally. Right infrahilar infiltrate cannot be excluded.IMPRESSIONPeribronchial thickening with questionable right perihilar infiltrate. Correlate clinically.Electronically signed by: MICHAEL FORREST (Dec 02, 2019 11:20:16)
[2019-12-02] MEDS ORDERED: NS 100 ML IV + SPIKE MINIBAG* 100 ML IV ONE (11:49)
[2019-12-02] MEDS: NS + KCL 20 MEQ/L 1,000 ML IV SCH (11:58)
[2019-12-02] MEDS: ZITHROMAX INJ 500 MG VIAL 500 MG in NS 250 ML IV 250 ML IV SCH ×2 (11:58→14:29)
[2019-12-02] MEDS: ASPIRIN 81 MG CHEWTAB PO SCH (11:58)
[2019-12-02] MEDS: CELEXA PO SCH (11:58)
[2019-12-02] MEDS: PREDNISONE TAB 20 MG PO SCH (11:59)
[2019-12-02] MEDS: LOVENOX INJ 40 MG SYR SC SCH (11:59)
[2019-12-02] MEDS: ROCEPHIN VIAL 1 GRAM 1 G in NS 100 ML IV + SPIKE MINIBAG* 100 ML IV SCH (12:00)
--- NOTE | 2019-12-03 06:06 | RAD ---
HISTORYSOBSTUDYCHEST, 1 [id number]/17/2020FINDINGSHeart size unchanged. No new airspace opacity or pleural effusion. There is linear opacity within the right midlung consistent with subsegmental atelectasis. No pneumothorax. Chronic interstitial lung changes and likely COPD.IMPRESSIONChronic interstitial lung changes and likely COPD without acute airspace disease or CHF.Electronically signed by: PAXTON CASE (Dec 03, 2019 06:05:10)
[2019-12-03 06:23] LABS: BASOPHILS % (AUTO) 0.4 % (0.2-1.0); EOSINOPHILS % (AUTO) 0.2 % (0.9-2.9); HEMATOCRIT 33.7 % (36.0-47.0); HEMOGLOBIN 11.4 g/dL (12.0-16.0); LYMPHOCYTES # (AUTO) 2.5 X10^3/uL (1.3-2.9); LYMPHOCYTES % (AUTO) 25.8 % (21.0-51.0); MEAN CORPUSCULAR HEMOGLOBIN 29.3 pg (27.0-34.0); MEAN CORPUSCULAR HGB CONC 33.8 g/dL (33.0-35.0); MEAN CORPUSCULAR VOLUME 86.7 fL (80.0-100.0); MEAN PLATELET VOLUME 7.8 fL (7.4-11.0); MONOCYTES # (AUTO) 0.5 x10^3/uL (0.3-0.8); MONOCYTES % (AUTO) 5.5 % (0.0-13.0); NEUTROPHILS # (AUTO) 6.7 x10^3/uL (2.2-4.8); NEUTROPHILS % (AUTO) 68.1 % (42.0-75.0); PLATELET COUNT 241 X10^3/uL (150.0-450.0); RED BLOOD COUNT 3.89 X10^6/uL (3.5-5.4); RED CELL DISTRIBUTION WIDTH 14.1 % (11.6-16.5); WHITE BLOOD COUNT 9.9 X10^3/uL (3.6-10.0)
[2019-12-03 06:47] LABS: ALANINE AMINOTRANSFERASE 18 Units/L (12-78); ALKALINE PHOSPHATASE 53 Units/L (46-116); ASPARTATE AMINO TRANSFERASE 12 Units/L (15-37); BLOOD UREA NITROGEN 17 mg/dL (7-18); CALCIUM 8.1 mg/dL (8.5-10.1); CARBON DIOXIDE 24.8 mmol/L (21-32); CHLORIDE 108 mmol/L (98-107); COR CA(FOR HYPOALB) 8.9 mg/dL (8.5-10.1); CREATININE 0.88 mg/dL (0.55-1.02); SODIUM 140 mmol/L (136-145); TOTAL PROTEIN 7.3 g/dL (6.4-8.2); eGFR NON BLACK RACES > 60 (>60)
[2019-12-03] MEDS: DUONEB 0.5 MG/3 MG (3 mL) NEB SCH (09:00)
[2019-12-03] MEDS: ASPIRIN 81 MG CHEWTAB PO SCH (09:44)
[2019-12-03] MEDS: LOVENOX INJ 40 MG SYR SC SCH (09:45)
[2019-12-03] MEDS: CELEXA PO SCH (09:45)
[2019-12-03] MEDS: PREDNISONE TAB 20 MG PO SCH (09:46)
[2019-12-03] MEDS: ROCEPHIN VIAL 1 GRAM 1 G in NS 100 ML IV + SPIKE MINIBAG* 100 ML IV SCH (09:46)
[2019-12-03] MEDS: ZITHROMAX INJ 500 MG VIAL 500 MG in NS 250 ML IV 250 ML IV SCH (12:00)
[2019-12-03 15:14] VITALS: BP 134/70
== END 2019-12-03 14:10 | disposition home or self-care (01) ==
LOC: OBS 16:16 → ER 16:16 → ICU 16:16 → OBS 20:01 → MED/SURG 12-01 16:00
PROVIDERS: ADMIT Internal Medicine; ATTEND Internal Medicine
DX: I10 Essential (primary) hypertension; B95.1 Streptococcus, group B, as the cause of diseases classified elsewhere; N39.0 Urinary tract infection, site not specified; R94.31 Abnormal electrocardiogram [ECG] [EKG]; R06.02 Shortness of breath; R13.11 Dysphagia, oral phase; J18.8 Other pneumonia, unspecified organism; M79.602 Pain in left arm; E01.0 Iodine-deficiency related diffuse (endemic) goiter; J44.9 Chronic obstructive pulmonary disease, unspecified; E86.0 Dehydration; E87.6 Hypokalemia; M54.2 Cervicalgia; M25.512 Pain in left shoulder; R07.2 Precordial pain
CPT/HCPCS: 36415; 71010; 71020; 71045; 71046; 72050; 73030; 76536; 80053; 80061; 81001; 82550; 82553; 83735; 84132; 84439; 84443; 84481; 84484; 85025; 85610; 85730; 86738; 87070; 87086; 87088; 87186; 87205; 93005; 94640; 94669; 94760; 96360; 96361; 96365; 96367; 96372; 96374; 99284; 99285; A4222; G0378; J0456; J0696; J1650; J1956; J3475; J7030; J7050; J7512; J7620; J8499

== ENCOUNTER 2022-04-07 14:18 | Observation (INO) ==
[2022-04-07] MEDS ORDERED: POTASSIUM CHLORIDE LIQ 20 MEQ UDC PO PRN (14:23)
[2022-04-07] MEDS ORDERED: MICRO K EXTEN CAP 10 MEQ PO PRN (14:23)
[2022-04-07] MEDS ORDERED: K-DUR TAB 20 MEQ PO PRN (14:23)
[2022-04-07] MEDS ORDERED: K-RIDER 10 MEQ/NS 100 ML 10 MEQ/100 ML BAG IV PRN (14:23)
[2022-04-07] MEDS ORDERED: POTASSIUM CHL 40 MEQ/NS 0.45% 500 ML IV PRN (14:23)
[2022-04-07] MEDS ORDERED: POTASSIUM CHL 60 MEQ/NS 0.45% 500 ML IV PRN (14:23)
[2022-04-07 16:03] VITALS: BMI 29.6
[2022-04-07 16:13] LABS: EOSINOPHILS # (AUTO) 0.1 x10^3/uL (0.0-0.2); HEMOGLOBIN 12.2 g/dL (12.0-16.0); MONOCYTES # (AUTO) 0.6 x10^3/uL (0.3-0.8); NEUTROPHILS # (AUTO) 3.2 x10^3/uL (2.2-4.8); RED CELL DISTRIBUTION WIDTH 14.1 % (11.6-16.5); WHITE BLOOD COUNT 5.8 X10^3/uL (3.6-10.0)
[2022-04-07 16:18] LABS: BASOPHILS # (AUTO) 0.1 X10^3/uL (0.0-0.1); BASOPHILS % (AUTO) 1.4 % (0.2-1.0); EOSINOPHILS % (AUTO) 2.2 % (0.9-2.9); HEMATOCRIT 35.6 % (36.0-47.0); LYMPHOCYTES # (AUTO) 1.9 X10^3/uL (1.3-2.9); LYMPHOCYTES % (AUTO) 32.2 % (21.0-51.0); MEAN CORPUSCULAR HEMOGLOBIN 28.3 pg (27.0-34.0); MEAN CORPUSCULAR HGB CONC 34.2 g/dL (33.0-35.0); MEAN CORPUSCULAR VOLUME 82.7 fL (80.0-100.0); MEAN PLATELET VOLUME 7.9 fL (7.4-11.0); NEUTROPHILS % (AUTO) 54.2 % (42.0-75.0)
[2022-04-07 16:24] LABS: ALANINE AMINOTRANSFERASE 10 Units/L (12-78); ALBUMIN 3.4 g/dL (3.4-5.0); ALKALINE PHOSPHATASE 72 Units/L (46-116); ASPARTATE AMINO TRANSFERASE 19 Units/L (15-37); BLOOD UREA NITROGEN 11 mg/dL (7-18); CALCIUM 8.7 mg/dL (8.5-10.1); CARBON DIOXIDE 29.6 mmol/L (21-32); CHLORIDE 102 mmol/L (98-107); CREATININE 1.11 mg/dL (0.55-1.02); MAGNESIUM 1.9 mg/dL (1.7-2.9); SODIUM 137 mmol/L (136-145); TOTAL PROTEIN 8.1 g/dL (6.4-8.2); eGFR NON BLACK RACES 53 (>60)
[2022-04-07] MEDS: NS 1,000 ML IV 1,000 ML IV SCH (16:25)
[2022-04-07 16:31] LABS: PLATELET MORPHOLOGY COMMENT NORMAL (NORMAL)
[2022-04-07] MEDS: MAGNESIUM SULFATE 1 GRAM/100 mL PREMIX 1 G/100 ML BAG IV PRN ×2 (17:10→18:09)
--- NOTE | 2022-04-07 17:59 | DR.H&P ---
H&P - History & Physical for Day of: H&P Date: 04/07/22 - Chief Complaint Chief Complaint: "very weak" leg cramps, fatigue - History of Present Illness History of Present Illness: PT IS 62 WF DIRECT ADMIT FROM DR ISSA OFFICE WITH SYMPTOMATIC HYPOKALEMIA. PT HAD OUTPT LAB WITH ABNORMAL POTASSIUM LEVEL, FAILED TO IMPROVE WITH PO TREATMENT. PT CO VERY WEAK AND FATIGUE THIS AM. PT CO DIFFICULT TO SPEECH, DENIES ANY CHEST PAIN OR SOB, DENIES ANY COVID SYMPTOMS. PT ADMITTED FOR TREATMENT AND EVALUATION OF ACUTE ILLNESS - Past Medical History Past Medical History: Depression, GERD, Hypothyroidism - Past Surgical History Surgical History: Cholecystectomy - Family History Family Medical History: Cancer, [place] - Social History Does patient currently use any type of tobacco product: No Type of Tobacco Use: None Alcohol Use: None Drug Use: None Risks, benefits, and alternatives of opioids discussed: No Prescription drug monitoring program results: PDMP reviewed and no concerns identified - Medications Home Medications: Sulfa (Sulfonamide Antibiotics) Allergy (Verified 07/24/21 11:33) CONTINUE taking the following medications pantoprazole [Protonix] 40 mg PO DAILY 04/07/22 [History] potassium chloride 20 meq PO BID 04/07/22 [History] - Review of Systems Constitutional: Weakness, Malaise Eyes: No Symptoms Reported ENT: No Symptoms Reported Respiratory: No Symptoms Reported Cardiovascular: Palpitations Gastrointestinal: Nausea, Diarrhea Genitourinary: No Symptoms Reported Musculoskeletal: Leg Pain Skin: No Symptoms Reported Neurological: Weakness, Change in Speech - Physical Exam Vital Signs: Temperature 98.3 F Pulse Rate [Bilateral Radial] 120 Respiratory Rate 20 Blood Pressure [Right Arm] 120/67 O2 Sat by Pulse Oximetry 97 Oriented: Normal Eyes: Normal Ear: Normal Nose: Normal Throat: Normal Respiratory: Clear Throughout Cardiovascular: Tachycardia : Normal Auscultation: Bowel Sounds: Normal Palpation: Normal Tenderness: Normal Skin: Decreased Turgur Musculoskeletal: Back:Lumbar Psychiatric: Normal Mood Description: Calm Speech Pattern: Appropriate, Slurred (PT HAD NO NEUROFOCAL DEFICITS ON EXAMINATION, REPORTS "FEELS LIKE THICK TONGUE") - Assessment/Plan (1) Hypokalemia Status: Acute Plan: ADMIT, CARDIAC MONITORING, POTASSIUM REPLACEMENT PROTOCOL. CXR AND EKG ON ADMISSION. IV HYDRATION, VERIFY HOME MEDICATION. ADMISSION LABS INCLUDE CE, MAG, UA (2) Muscle weakness Status: Acute (3) GERD (gastroesophageal reflux disease) Status: Acute - Allergies Allergies/Adverse Reactions: Allergies Allergy/AdvReac Type Severity Reaction Status Date / Time Sulfa (Sulfonamide Allergy Verified 07/24/21 11:33 Antibiotics)
[2022-04-07 18:21] LABS: CKMB % 1.2 % (<4); CREATINE KINASE MB 1.4 ng/mL (0-4.0)
--- NOTE | 2022-04-07 19:17 | RAD ---
HISTORYWeaknessSTUDYCHEST, 1 VIEWCOMPARISONSeptember 2020TECHNIQUEChest radiographic imaging, AP portable projection, 2 imagesFINDINGSNo cardiomegaly.No focal airspace disease.No pleural effusion.No pneumothorax.No acute osseous abnormality.IMPRESSIONNo imaging findings of acute cardiopulmonary disease.Electronically signed by: Alton Montes (April 07, 2022 19:16:40)
[2022-04-07 19:44] LABS: BILIRUBIN,URINE NEGATIVE (NEGATIVE); BLOOD/HEMOGLOBIN,URINE 2+ (NEGATIVE); GLUCOSE, URINE NEGATIVE (NEGATIVE); KETONES,URINE NEGATIVE (NEGATIVE); LEUKOCYTE ESTERASE ,URINE 2+ (NEGATIVE); NITRITES,URINE NEGATIVE (NEGATIVE); PROTEIN,URINE NEGATIVE (NEGATIVE); UROBILINOGEN,URINE NORMAL (NORMAL)
[2022-04-07 20:03] LABS: APPEARANCE,URINE SLIGHTLY HAZY (CLEAR); COLOR,URINE YELLOW (YELLOW)
[2022-04-07 20:04] LABS: BACTERIA,URINE 2+ /HPF (NEGATIVE); SQUAMOUS EPITHELIAL CELL,UR NUMEROUS /HPF (NEGATIVE)
[2022-04-07] MEDS: CELEXA PO SCH (20:38)
[2022-04-07] MEDS: KLOR-CON PO PRN (20:38)
[2022-04-08] MEDS: NS 1,000 ML IV 1,000 ML IV SCH ×3 (04:01→20:36)
[2022-04-08 06:01] LABS: BASOPHILS # (AUTO) 0.1 X10^3/uL (0.0-0.1); BASOPHILS % (AUTO) 0.9 % (0.2-1.0); EOSINOPHILS # (AUTO) 0.1 x10^3/uL (0.0-0.2); EOSINOPHILS % (AUTO) 1.9 % (0.9-2.9); HEMATOCRIT 32.6 % (36.0-47.0); HEMOGLOBIN 11.1 g/dL (12.0-16.0); LYMPHOCYTES # (AUTO) 1.8 X10^3/uL (1.3-2.9); LYMPHOCYTES % (AUTO) 29.9 % (21.0-51.0); MEAN CORPUSCULAR HEMOGLOBIN 28.3 pg (27.0-34.0); MEAN CORPUSCULAR HGB CONC 34.2 g/dL (33.0-35.0); MEAN CORPUSCULAR VOLUME 82.8 fL (80.0-100.0); MEAN PLATELET VOLUME 8.1 fL (7.4-11.0); MONOCYTES # (AUTO) 0.5 x10^3/uL (0.3-0.8); MONOCYTES % (AUTO) 8.4 % (0.0-13.0); NEUTROPHILS # (AUTO) 3.5 x10^3/uL (2.2-4.8); NEUTROPHILS % (AUTO) 58.9 % (42.0-75.0); RED BLOOD COUNT 3.94 X10^6/uL (3.5-5.4); RED CELL DISTRIBUTION WIDTH 13.9 % (11.6-16.5)
[2022-04-08 06:29] LABS: ALANINE AMINOTRANSFERASE 11 Units/L (12-78); ALBUMIN 2.9 g/dL (3.4-5.0); ALKALINE PHOSPHATASE 61 Units/L (46-116); ASPARTATE AMINO TRANSFERASE 16 Units/L (15-37); BLOOD UREA NITROGEN 10 mg/dL (7-18); CALCIUM 8.3 mg/dL (8.5-10.1); CARBON DIOXIDE 24.6 mmol/L (21-32); CHLORIDE 106 mmol/L (98-107); CHOL/HDL RATIO 4.8 (0.0-5.0); CHOLESTEROL 167 mg/dL (0-200); COR CA(FOR HYPOALB) 9.2 mg/dL (8.5-10.1); CREATININE 1.02 mg/dL (0.55-1.02); FREE T4 (FREE THYROXINE) 0.56 ng/dL (0.76-1.46); HDL CHOLESTEROL 35 mg/dL (40-60); SODIUM 139 mmol/L (136-145); TOTAL PROTEIN 7.2 g/dL (6.4-8.2); TRIGLYCERIDES 147 mg/dL (0-150); TSH (3RD GENERATION) 2.977 uIU/mL (0.358-3.74); eGFR NON BLACK RACES 58 (>60)
[2022-04-08] MEDS: KLOR-CON PO PRN ×2 (06:40→12:31)
[2022-04-08] MEDS: ASPIRIN EC 81 MG PO SCH (08:29)
[2022-04-08] MEDS: PROTONIX TAB 40 MG PO SCH (08:29)
[2022-04-08] MEDS ORDERED: XYLOCAINE VISCOUS ONE (17:31)
[2022-04-08] MEDS: XYLOCAINE VISCOUS MT SCH ×2 (17:33→20:37)
[2022-04-08] MEDS: CELEXA PO SCH (20:36)
[2022-04-08] MEDS: K-DUR TAB 20 MEQ PO SCH (20:37)
[2022-04-09] MEDS: NS 1,000 ML IV 1,000 ML IV SCH (03:54)
[2022-04-09 06:20] LABS: BASOPHILS % (AUTO) 0.8 % (0.2-1.0); EOSINOPHILS # (AUTO) 0.1 x10^3/uL (0.0-0.2); EOSINOPHILS % (AUTO) 2.7 % (0.9-2.9); HEMATOCRIT 34.2 % (36.0-47.0); HEMOGLOBIN 11.6 g/dL (12.0-16.0); LYMPHOCYTES # (AUTO) 1.7 X10^3/uL (1.3-2.9); LYMPHOCYTES % (AUTO) 34.1 % (21.0-51.0); MEAN CORPUSCULAR HEMOGLOBIN 28.1 pg (27.0-34.0); MEAN CORPUSCULAR HGB CONC 33.9 g/dL (33.0-35.0); MEAN CORPUSCULAR VOLUME 82.9 fL (80.0-100.0); MEAN PLATELET VOLUME 8.4 fL (7.4-11.0); MONOCYTES # (AUTO) 0.4 x10^3/uL (0.3-0.8); MONOCYTES % (AUTO) 8.8 % (0.0-13.0); NEUTROPHILS # (AUTO) 2.7 x10^3/uL (2.2-4.8); NEUTROPHILS % (AUTO) 53.6 % (42.0-75.0); RED BLOOD COUNT 4.12 X10^6/uL (3.5-5.4); RED CELL DISTRIBUTION WIDTH 13.9 % (11.6-16.5)
[2022-04-09 06:24] LABS: ALANINE AMINOTRANSFERASE 16 Units/L (12-78); ALKALINE PHOSPHATASE 61 Units/L (46-116); ASPARTATE AMINO TRANSFERASE 16 Units/L (15-37); BLOOD UREA NITROGEN 7 mg/dL (7-18); CALCIUM 8.6 mg/dL (8.5-10.1); CARBON DIOXIDE 23.6 mmol/L (21-32); CHLORIDE 107 mmol/L (98-107); COR CA(FOR HYPOALB) 9.4 mg/dL (8.5-10.1); CREATININE 0.89 mg/dL (0.55-1.02); SODIUM 138 mmol/L (136-145); TOTAL PROTEIN 7.3 g/dL (6.4-8.2); eGFR NON BLACK RACES > 60 (>60)
[2022-04-09] MEDS: K-DUR TAB 20 MEQ PO SCH (09:15)
[2022-04-09] MEDS: ASPIRIN EC 81 MG PO SCH (09:15)
[2022-04-09] MEDS: PROTONIX TAB 40 MG PO SCH (09:16)
[2022-04-09] MEDS: XYLOCAINE VISCOUS MT SCH ×2 (10:26→13:00)
[2022-04-09 12:54] VITALS: BP 118/60
== END 2022-04-09 14:30 | disposition home or self-care (01) ==
LOC: MED/SURG
PROVIDERS: ADMIT Internal Medicine; ATTEND Internal Medicine
DX: E87.6 Hypokalemia; K21.9 Gastro-esophageal reflux disease without esophagitis; Z20.822 Contact with and (suspected) exposure to COVID-19; R94.31 Abnormal electrocardiogram [ECG] [EKG]; E03.8 Other specified hypothyroidism; M62.81 Muscle weakness (generalized)